=== PATIENT | female | born 1945 | race African-American/Black ===

== ENCOUNTER 2016-12-06 12:41 | Emergency (ER) | payer MEDICARE, BC ==
[~2016-12-06] VITALS: Ht 167.6 cm; Wt 81.2 kg
[~2016-12-06 12:41] MED LIST: ALBUTEROL SULF8.5 GM INH; ATARAX25 MG PO; COSOPT EYE DROP10 ML BOTH EYES; METHIMAZOLE5 MG PO; TESSALON PERLE100 M2 ORAL
[2016-12-06] MEDS ORDERED: AZOPT10 ML OP (13:04)
[2016-12-06] MEDS ORDERED: ALPHAGAN P5 M2 OP (13:04)
[2016-12-06] MEDS ORDERED: LATANOPROST2.5 ML BOTH EYES (13:04)
[2016-12-06 13:18] VITALS: BP 127/84
[2016-12-06] MEDS ORDERED: PROMETHAZINE-P118 M1 PO (13:42)
[2016-12-06] MEDS ORDERED: AZITHROMYCIN250 MG ORAL (13:42)
[2016-12-06 13:49] VITALS: BP 127/84
--- NOTE | 2016-12-07 10:30 | Diagnostic Imaging Report ---
Indication: Dyspnea Comparison: 04/25/12 A single view chest radiograph was obtained. Findings: The heart is borderline enlarged. Lungs are clear. There is a pacemaker on the left. Bones are osteopenic. Impression: No acute disease
--- NOTE | 2016-12-09 13:35 | Emergency Room Report ---
History of Present Illness General Chief Complaint: Upper Respiratory Illness Source: Patient, Medical Record Present Illness HPI Patient present with complaints of cough and congestion reports that she gets this similar problem every year Complains of yellowish sputum Denies any fevers denies any headache Denies any neck pain or photophobia She does have some sore throat with this as well 3/10 worse with swallowing denies any change with ambulation or position Allergies: Coded Allergies: No Known Allergies (Unverified , 04/25/12) Patient History Past Medical History: see triage record Pertinent Family History: none Reviewed Nursing Documentation: PMH: Agreed, PSxH: Agreed Nursing Documentation-PMH Hx Cardiac Problems: Yes - Graves dis,Glaucoma Hx Hypertension: No Hx Pacemaker: Yes - [place] 04/2012 Hx Asthma: No Hx COPD: No Hx Diabetes: No Hx Cancer: No Hx Gastrointestinal Problems: No Hx Dialysis: No Hx Cerebrovascular Accident: No Hx Seizures: No Review of Systems All Other Systems: negative except mentioned in HPI Physical Exam Vital Signs Date Time Temp Pulse Resp B/P Pulse Ox O2 Delivery O2 Flow Rate FiO2 12/06/16 12:57 97.9 62 16 124/82 98 Room Air Sp02 EP Interpretation: reviewed, normal General Appearance: well appearing, no apparent distress Head: normocephalic, atraumatic Eyes: bilateral eye EOMI, bilateral eye PERRL ENT: hearing grossly normal, TMs + canals normal, uvula midline, pharyngeal erythema Neck: full range of motion, supple, no meningismus, no bony tend Respiratory: lungs clear, normal breath sounds, no rhonchi, no respiratory distress, no retraction, no accessory muscle use Cardiovascular #1: normal peripheral pulses, regular rate, rhythm, no edema, no gallop, no JVD, no murmur Gastrointestinal: normal bowel sounds, non tender, soft, no mass, no organomegaly, non-distended, no guarding, no hernia, no pulsatile mass, no rebound Genitourinary: no CVA tenderness Musculoskeletal: normal inspection Neurologic: oriented x3, responsive, regulator pin inserter III-XII nml as tested, motor strength/ tone normal, sensory intact Psychiatric: mood/affect normal Skin: normal color, no rash, warm/dry, palpation normal Lymphatic: normal inspection, no adenopathy Medical Decision Making Diagnostic Impression: Primary Impression: atypical pneumonia ER Course And the patient's symptoms history and presentation x-ray imaging was done appears appropriate patient diagnosed with atypical pneumonia given her symptoms we'll have appropriate coverage and initial conservative outpatient trial Chest X-Ray Diagnostic Results EP Interpretation: Yes Findings: no consolidation, no effusion, no pneumothorax Number of Views: 1 Last Vital Signs Date Time Temp Pulse Resp B/P Pulse Ox O2 Delivery O2 Flow Rate FiO2 12/06/16 13:49 98.1 65 15 127/84 99 Room Air Status: improved Disposition: HOME, SELF-CARE Condition: Improved Scripts Promethazine/Phenyleph/Codeine (Tsgbzmfumhqj-LW-Thwdyzg Syrup) 118 Ml Syrup 118 ML PO QHS for 5 Days, ML Prov: APRIL BORGES D.O. 12/06/16 Azithromycin* (ZITHROMAX*) 250 Mg Tablet 250 MG ORAL DAILY, #6 TAB 0 Refills Take two tablets by mouth today, then take one tablet by mouth daily for four days Prov: APRIL BORGES D.O. 12/06/16 Referrals: CRISTÓBAL MARSH (PCP) Patient Instructions: Cough, Adult, [id number]-kn-[id number] Additional Instructions: Patient is provided with the discharge instructions notified to follow up with primary doctor in the next 2-3 days otherwise return to the er with any worsening symptoms. Please note that this report is being documented using [employer] technology. This can lead to erroneous entry secondary to incorrect interpretation by the dictating instrument. APRIL BORGES D.O. December 09, 2016 13:35
== END 2016-12-06 13:49 | disposition home or self-care (01) ==
LOC: EMR 13:20
DX: J18.9 Pneumonia, unspecified organism (principal); J39.9 Disease of upper respiratory tract, unspecified; R05 Cough; I25.2 Old myocardial infarction; Z95.0 Presence of cardiac pacemaker; E05.00 Thyrotoxicosis with diffuse goiter without thyrotoxic crisis or storm; H40.9 Unspecified glaucoma
CPT/HCPCS: 71010; 99283

== ENCOUNTER 2017-05-29 17:29 | Emergency (ER) | payer MEDICARE, BC ==
[~2017-05-29] VITALS: Ht 167.6 cm; Wt 77.1 kg
[~2017-05-29 17:29] MED LIST changes: +ALPHAGAN P5 M2 OP; +AZITHROMYCIN250 MG ORAL; +AZOPT10 ML OP; +LATANOPROST2.5 ML BOTH EYES; +PROMETHAZINE-P118 M1 PO
--- NOTE | 2017-05-29 17:54 | Emergency Room Report ---
History of Present Illness General Chief Complaint: Pain Source: Patient Present Illness HPI 72 YO Female presents to the ED c/o right sided neck 9/10 in severity pain and posterior shoulder pain described as tight, and muscle soreness. pt. reports some mild relief with OTC topical muscle cream. denies trauma or fall. pt. denies weakness in the affected extremity, she denies any limitation to the range of motion in her right shoulder. Denies midline neck or back pain. Denies numbness tingling or loss of sensation or gross motor movements of the extremities, incontinence of bowel or bladder. Denies CP, Palpitations, LOC, AMS , dizziness, Changes in Vision, Sensation, paresthesias, or a sudden severe headache. Allergies: Coded Allergies: SCALLOPS (Verified Allergy, Unknown, 05/29/17) Patient History Past Medical History: see triage record Past Surgical History: none Pertinent Family History: none Now: No Reviewed Nursing Documentation: PMH: Agreed, PSxH: Agreed Nursing Documentation-PMH Past Medical History: No History, Except For Hx Cardiac Problems: Yes - Graves disease, Glaucoma, thyroidectomy Hx Hypertension: No Hx Pacemaker: Yes - [place] 04/2012 Hx Asthma: No Hx COPD: No Hx Diabetes: No Hx Cancer: No Hx Gastrointestinal Problems: No Hx Dialysis: No History Of Psychiatric Problem: No Hx Neurological Problems: No Hx Cerebrovascular Accident: No Hx Seizures: No Review of Systems All Other Systems: negative except mentioned in HPI Physical Exam Vital Signs Date Time Temp Pulse Resp B/P (MAP) Pulse Ox O2 Delivery O2 Flow Rate FiO2 05/29/17 17:37 97.5 60 16 117/68 100 Room Air Sp02 EP Interpretation: reviewed, normal General Appearance: well appearing, no apparent distress, alert, GCS 15, non- toxic Head: normocephalic, atraumatic Eyes: bilateral eye normal inspection, bilateral eye PERRL ENT: hearing grossly normal, normal voice Neck: full range of motion, no meningismus, no bony tend, supple/symm/no masses Respiratory: chest non-tender, lungs clear, normal breath sounds, speaking full sentences Cardiovascular #1: regular rate, rhythm, normal capillary refill Cardiovascular #2: 2+ radial (R), 2+ radial (L) Gastrointestinal: non tender, soft Musculoskeletal: back normal, gait/station normal, normal range of motion, non- tender Neurologic: normal inspection, alert, oriented x3, responsive, motor strength/ tone normal, sensory intact, normal gait, speech normal, no pronator, other - equal flight hostess strength. Skin: normal color, no rash, warm/dry, well hydrated Lymphatic: no adenopathy Medical Decision Making PA Attestation Dr. Vargas is my supervising Physician whom patient management has been discussed with. Diagnostic Impression: Primary Impression: Cervical strain Qualified Codes: S16.1XXA - Strain of muscle, fascia and tendon at neck level , initial encounter ER Course 72 YO Female presents to the ED c/o right sided neck 9/10 in severity pain and posterior shoulder pain described as tight, and muscle soreness. pt. reports some mild relief with OTC topical muscle cream. denies trauma or fall. pt. denies weakness in the affected extremity, she denies any limitation to the range of motion in her right shoulder. Denies midline neck or back pain. Denies numbness tingling or loss of sensation or gross motor movements of the extremities, incontinence of bowel or bladder. Denies CP, Palpitations, LOC, AMS , dizziness, Changes in Vision, Sensation, paresthesias, or a sudden severe headache. Ddx considered but are not limited to Fracture, dislocation, contusion, CVA, Sprain/Strain/Spasm Vital signs: are WNL, pt. is afebrile H&PE are most consistent with muscle spasm/ cervical strain. pt. is NVI, has FROM without pain in the right shoulder, no evidence of infection or neurological deficit. ORDERS: none required at this time. ED INTERVENTIONS: -Robaxin PO -IBU PO -I do not suspect an emergent condition at this time with pt. current presentation of symptoms and essentially normal PE. -D/w pt. conservative treatment, and to follow up with a primary care provider. pt given a list of primary care clinics for follow up. d/w pt. to return to the ED with worsening or new symptoms. DISCHARGE: At this time pt. is stable for d/c to home. Will provide printed patient care instructions, and any necessary prescriptions. Care plan and follow up instructions have been discussed with the patient prior to discharge. Last Vital Signs Date Time Temp Pulse Resp B/P (MAP) Pulse Ox O2 Delivery O2 Flow Rate FiO2 05/29/17 17:37 97.5 60 16 117/68 100 Room Air Disposition: HOME, SELF-CARE Condition: Stable Scripts Lidocaine (Lidoderm) 1 Each Adh..patch 1 PATCH TOPIC DAILY, #20 PATCH 0 Refills Patch(es) may remain in place for up to 12 hours in any 24-hour period. Prov: Karli Triana 05/29/17 Ibuprofen* (MOTRIN*) 600 Mg Tablet 600 MG ORAL THREE TIMES A DAY, #20 TAB 0 Refills Prov: Karli Triana 05/29/17 Methocarbamol* (ROBAXIN-750*) 750 Mg Tablet 750 MG PO QID for 7 Days, #28 TAB 0 Refills Prov: Karli Triana 05/29/17 Patient Instructions: Cervical Strain and Sprain With Rehab-[facility] Additional Instructions: Take medications as directed. Follow up with a Primary Care Provider in 3-5 days, even if your symptoms have resolved. Return sooner to ED if new symptoms occur, or current symptoms become worse. Do not drink alcohol, drive, or operate heavy machinery while taking Muscle relaxer: Robaxin as this may cause drowsiness. - Please note that this Emergency Department Report was dictated using [employer] technology software, occasionally this can lead to erroneous entry secondary to interpretation by the dictation equipment. Karli Triana May 29, 2017 17:54
[2017-05-29 17:58] VITALS: BP 117/68
[2017-05-29] MEDS: Methocarbamol 500mg tab ORAL ONE (18:03)
[2017-05-29] MEDS ORDERED: IBUPROFEN600 MG ORAL (18:05)
[2017-05-29] MEDS ORDERED: LIDODERM700 M1 TOPIC (18:05)
[2017-05-29] MEDS ORDERED: ROBAXIN-750750 MG PO (18:05)
[2017-05-29 18:25] VITALS: BP 117/68
== END 2017-05-29 18:28 | disposition home or self-care (01) ==
LOC: EMR 18:14
DX: S16.1XXA Strain of muscle, fascia and tendon at neck level, initial encounter (principal); X58.XXXA Exposure to other specified factors, initial encounter; Y92.89 Other specified places as the place of occurrence of the external cause
CPT/HCPCS: 99284

== ENCOUNTER 2018-09-09 17:01 | Inpatient (IN) | payer MEDICARE, BC ==
[~2018-09-09] VITALS: Ht 167.6 cm; Wt 71.2 kg
[~2018-09-09 17:01] MED LIST changes: +IBUPROFEN600 MG ORAL; +LIDODERM700 M1 TOPIC; +ROBAXIN-750750 MG PO
[2018-09-09 18:40] VITALS: BP 132/90
[2018-09-09 20:00] VITALS: BP 130/74
--- NOTE | 2018-09-09 20:40 | NUR ---
Received patient in bed, direct admit from home, patient of Dr. Lee. patient is awake, alert and oriented, ambulatory, she is legally blind, belongings list complete and accounted for. MD notified of admissions, admit orders are entered by Dr. Lee, home medications are reconciled, IV started on right hand 22 art, saline lock. No skin issues, patient is on room air. Call light is within reach, bed is in low position, locked and alarm is on. Will continue to monitor for safety and comfort.
[2018-09-09] MEDS ORDERED: Milk of Magnesia 30ml Ud ORAL PRN (21:30)
[2018-09-09] MEDS ORDERED: Promethazine/Codeine 5ml UD ORAL PRN (21:30)
[2018-09-09 22:13] LABS: BASOPHILS % (AUTO) 0.9 % (0.0-2.0); EOSINOPHILS % (AUTO) 8.4 % (0.0-3.0); HEMATOCRIT 30.7 % (37.0-47.0); HEMOGLOBIN 9.9 G/DL (12.0-16.0); LYMPHOCYTES % (AUTO) 25.3 % (20.0-45.0); MEAN CORPUSCULAR VOLUME 83 FL (80-99); NEUTROPHILS % (AUTO) 58.5 % (45.0-75.0); PLATELET COUNT 229 K/UL (150-450); RED BLOOD COUNT 3.72 M/UL (4.20-5.40); RED CELL DISTRIBUTION WIDTH 15.7 % (11.6-14.8); WHITE BLOOD COUNT 7.5 K/UL (4.8-10.8)
[2018-09-09 22:39] LABS: ALANINE AMINOTRANSFERASE 12 U/L (12-78); ALBUMIN 3.2 G/DL (3.4-5.0); ALBUMIN/GLOBULIN RATIO 0.6 (1.0-2.7); ALKALINE PHOSPHATASE 60 U/L (46-116); ANION GAP 10 mmol/L (5-15); ASPARTATE AMINO TRANSFERASE 15 U/L (15-37); BILIRUBIN,TOTAL 0.4 MG/DL (0.2-1.0); BLOOD UREA NITROGEN 16 mg/dL (7-18); CALCIUM 8.8 MG/DL (8.5-10.1); CARBON DIOXIDE 26 MMOL/L (21-32); CHLORIDE 102 MMOL/L (98-107); CREATININE 1.2 MG/DL (0.55-1.30); POTASSIUM 3.3 MMOL/L (3.5-5.1); SODIUM 138 MMOL/L (136-145)
[2018-09-09] MEDS: Albuterol/Ipratropium 3ml neb HHN SCH (22:40)
[2018-09-09] MEDS ORDERED: Vancomycin 1gm in D5W 275ml IVPB SCH (23:00)
[2018-09-09] MEDS ORDERED: LINZESS145 MCG PO (23:17)
[2018-09-09] MEDS ORDERED: SYNTHROID200 MCG ORAL (23:17)
[2018-09-09] MEDS ORDERED: ALLOPURINOL300 M1 ORAL (23:17)
[2018-09-09] MEDS ORDERED: XARELTO20 MG ORAL (23:17)
[2018-09-09] MEDS ORDERED: LUMIGAN2.5 ML BOTH EYES (23:17)
[2018-09-09] MEDS ORDERED: PROPRANOLOL HCL80 MG ORAL (23:17)
[2018-09-09] MEDS ORDERED: CALCIUM500 M3 PO (23:17)
[2018-09-09] MEDS ORDERED: CALCITRIOL0.25 MCG PO (23:17)
[2018-09-09] MEDS ORDERED: HYDROXYZINE HCL25 M1 PO (23:17)
[2018-09-09] MEDS ORDERED: AUGMENTIN 500-1 EACH ORAL (23:17)
[2018-09-09] MEDS ORDERED: VITAMIN C500 M1 ORAL (23:17)
[2018-09-10] VITALS (7 sets, daily range): BP systolic 105–128; BP diastolic 62–77
[2018-09-10] MEDS: Cefepime HCl 1 GM in D5W 55 ML IVPB SCH ×2 (00:07→09:22)
[2018-09-10] MEDS ORDERED: HydrOXYzine tab 25mg tab ORAL PRN (02:45)
[2018-09-10] MEDS ORDERED: Milk of Magnesia 30ml Ud ORAL PRN (02:45)
[2018-09-10] MEDS: Albuterol/Ipratropium 3ml neb HHN SCH ×6 (03:16→23:16)
--- NOTE | 2018-09-10 04:15 | History and Physical Report ---
DATE OF ADMISSION: 09/09/2018 CARDIOLOGY EVALUATION ADMITTING PHYSICIAN: Jose Raul Lee M.D. REFERRING PHYSICIAN: Garry Rangel M.D. REASON FOR ADMISSION: Elevated natriuretic peptide assay in the setting of cardiomyopathy and permanent pacemaker. HISTORY OF PRESENT ILLNESS: This is a 73-year-old female. She underwent left lumpectomy about a month ago. Following the surgical intervention, she developed cough. She was treated as an outpatient, but failed to improve and worsened over the past week specifically. She has hacking cough and shortness of breath. She was seen in my office and referred for a chest radiograph that was done at [facility] today. The result was notable for a new right lower lobe infiltrate. The patient had an abnormal CT scan just prior to her left lumpectomy. A lung nodule was noted in the right upper lobe. Biopsy was planned, however, at that time, they have noted the nodule had decreased in size, hence no biopsy was performed as it was felt to likely be inflammatory. A repeat CT scan was to be done within 3 months' time. PAST MEDICAL HISTORY: Hypertension, permanent pacemaker, Graves disease, status post thyroidectomy and iodine-131 therapy, exophthalmos, glaucoma with blindness, vitamin D deficiency, chronic constipation, hyperuricemia, paroxysmal atrial fibrillation, breast cancer, status post left lumpectomy. ALLERGIES TO MEDICATIONS: None. FAMILY HISTORY: Noncontributory. SOCIAL HISTORY: Negative for smoking, alcohol, or substance abuse. MEDICATIONS: Reviewed and reconciled. REVIEW OF SYSTEMS: Her outpatient echocardiogram revealed normal ejection fraction and concentric hypertrophy. Her baseline EKG has chronic T-wave inversions in the precordial leads and she is usually atrial-paced. She does have history of diastolic dysfunction, but no recent use of diuretics. She is on anticoagulation for cardioembolic prophylaxis. Her pacemaker was interrogated and functioning well within the last 3 months. She had a pacemaker generator change less than a year ago. PHYSICAL EXAMINATION: VITAL SIGNS: Oxygen saturation 99% on room air, temperature 99, blood pressure 132/90, heart rate 61, respiratory rate 18. HEENT: Exophthalmos. Blindness. Oropharynx clear. NECK: Supple. No adenopathy. CHEST: Left lumpectomy scar is healed. LUNGS: With rhonchi at the right base. CARDIAC: Regular rhythm and rate. Normal S1, S2. A 1/6 systolic apical murmur. ABDOMEN: Soft. EXTREMITIES: No edema. NEUROLOGIC: Nonfocal. LABORATORY DATA: Pro-natriuretic peptide 211. Albumin 3.2. TSH 1.1. Lactic acid 1.4. Potassium 3.3, BUN 16, creatinine 1.2. Magnesium 1.7. White count 7.5, hemoglobin 9.9. IMPRESSION: 1. Community-acquired pneumonia. 2. Recent lumpectomy for left breast cancer. 3. Lung nodule, recently noted to be decreasing in size, but pending further followup. 4. Graves disease with exophthalmos and prior thyroidectomy, on replacement therapy. 5. Hypertensive heart disease. 6. Permanent pacemaker. 7. Chronic diastolic congestive heart failure. 8. Mild protein-calorie malnutrition. 9. Paroxysmal atrial fibrillation, on cardioembolic prophylaxis. PLAN: 1. Empiric antibiotics. 2. Respiratory hygiene. 3. No diuretic therapy at present. 4. Continue cardioembolic prophylaxis with rivaroxaban. 5. Sputum cultures. 6. Repeat CT of the chest to evaluate status of lung nodule. Jose Raul Lee M.D. DR: Debra JOB#: [id number] CC: CRISTINA
--- NOTE | 2018-09-10 07:02 | NUR ---
HAND-OFF: Report given to Dami DIAZ.
--- NOTE | 2018-09-10 07:05 | NUR ---
NURSE NOTES: Patient lying in bed awake. No complain of pain or distress at this time. Skin intact and dry. IV dressing intact and dry. No bleeding or swelling on IV site. Bed lowest position. Call light within reach. Will continue to monitor.
[2018-09-10] MEDS: Calcium Carbonate 500mg w/Vit D 200iu tab ORAL SCH ×3 (09:00→17:11)
[2018-09-10] MEDS ORDERED: Dorzolamide 2% 10ml Btl BOTH EYES SCH (09:00)
[2018-09-10] MEDS: Brimonidine 0.2% Opth Sol BOTH EYES SCH ×3 (09:22→23:35)
[2018-09-10] MEDS: Cosopt Opth Soln 10 mL Btl BOTH EYES SCH ×2 (10:40→17:12)
--- NOTE | 2018-09-10 15:05 | NUR ---
NURSE NOTES: Collect sputum specimen and sent to Lab.
--- NOTE | 2018-09-10 16:22 | NUR ---
CASE MANAGEMENT:REVIEW 73YR OLD FEMALE FROM HOME CC; FAILED OUTPATIENT TREATMENT SI: PNA. LUNG NODULE 99.0 61 18 132/90 99% ON RA H/H-9.9/30.7 K-3.3 MAG-1.7 IS: IV CEFEPIME QD IV VANCOMYCIN Q24 XARELTO PO QPM SYNTHROID PO QD DUONEB HHN Q4RTC : MED/SURG UNIT 3 [facility] INTERQUAL CRITERIA MET
[2018-09-10] MEDS: Xarelto 10mg tab ORAL SCH (16:30)
[2018-09-10] MEDS ORDERED: Xarelto 15mg tab ORAL SCH (16:30)
--- NOTE | 2018-09-10 16:52 | NUR ---
RESPIRATORY NOTE: unable to give treatment at 1500 due to emergency room and no other rts available
--- NOTE | 2018-09-10 19:30 | NUR ---
HAND-OFF: Report given to Little DIAZ. Patient in stable condition.
--- NOTE | 2018-09-10 19:50 | NUR ---
NURSE NOTES: Patient in bed asleep, easily arousable to name, no s/s distress noted. Denies any pain or discomfort at this time. Safety precaution maintained. Instructed to use call light for assistance. Call light within reach.
[2018-09-10] MEDS: Latanoprost 0.005% Opth 2.5ml Soln BOTH EYES SCH ×2 (21:00→21:03)
[2018-09-11] VITALS: BP 105/57
[2018-09-11] MEDS: Vancomycin 1gm in D5W 275ml IVPB SCH (01:33)
[2018-09-11] MEDS: Albuterol/Ipratropium 3ml neb HHN SCH ×6 (02:43→23:42)
[2018-09-11 04:00] VITALS: BP 126/72
--- NOTE | 2018-09-11 04:30 | Progress Note ---
DATE: 09/10/2018 CARDIOLOGY INTERNAL MEDICINE PROGRESS NOTE SUBJECTIVE: The patient has slightly less cough and congestion. Still feels short of breath with activity. OBJECTIVE: VITAL SIGNS: Blood pressure 105/63, pulse 60, respiratory rate 20, afebrile, and room air oxygen saturation 98%. CHEST: Rhonchi on the right. HEART: Regular rhythm and rate. Normal S1, S2. ABDOMEN: Soft. EXTREMITIES: No edema. IMPRESSION: 1. Right lower lobe pneumonia. 2. Breast cancer with recent left lumpectomy. 3. History of lung nodule that decreased in size. 4. Graves disease. 5. Permanent pacemaker. 6. Hypertensive heart disease. PLAN: 1. Respiratory therapy. 2. Bronchodilators. 3. Antimicrobials. 4. Await culture results. 5. Recheck laboratory studies. 6. Nasal oxygen. 7. CAT scan of the chest. Jose Raul Lee M.D. DR: FATUMA JOB#: [id number] CC:
--- NOTE | 2018-09-11 07:25 | NUR ---
HAND-OFF: Report given to Leona DIAZ.
--- NOTE | 2018-09-11 07:30 | NUR ---
NURSE NOTES: Report received from outgoing RN, rounds made. Patient sleeping in semi-fowlers position in bed. No distress noted, on RA. Right hand heplock intact. Call light in reach, bed in lowest position, will continue to monitor.
[2018-09-11 08:00] VITALS: BP 111/63
[2018-09-11] MEDS: Calcium Carbonate 500mg w/Vit D 200iu tab ORAL SCH ×4 (09:00→18:19)
[2018-09-11] MEDS: Cefepime HCl 1 GM in D5W 55 ML IVPB SCH (09:12)
[2018-09-11] MEDS: Brimonidine 0.2% Opth Sol BOTH EYES SCH ×2 (09:13→16:41)
[2018-09-11] MEDS: Cosopt Opth Soln 10 mL Btl BOTH EYES SCH ×2 (09:14→18:19)
[2018-09-11 12:00] VITALS: BP 119/63
--- NOTE | 2018-09-11 12:23 | General Progress Note ---
Assessment/Plan Problem List: (1) Constipation ICD Codes: K59.00 - Constipation, unspecified SNOMED: 96122330 (2) Bronchitis ICD Codes: J40 - Bronchitis, not specified as acute or chronic SNOMED: 70202587 (3) Pneumonia ICD Codes: J18.9 - Pneumonia, unspecified organism SNOMED: 868816836 Status: stable, progressing Assessment/Plan cont current rx abx bowel regime monitor cxr resp care cough rx Subjective ROS Limited/Unobtainable: No Constitutional: Reports: malaise, weakness HEENT: Reports: no symptoms Cardiovascular: Reports: no symptoms Respiratory: Reports: no symptoms Gastrointestinal/Abdominal: Reports: constipated Genitourinary: Reports: no symptoms Neurologic/Psychiatric: Reports: no symptoms Endocrine: Reports: no symptoms Hematologic/Lymphatic: Reports: no symptoms Allergies: Coded Allergies: SCALLOPS (Verified Allergy, Unknown, 05/29/17) All Systems: reviewed and negative except above Subjective resting. no cough and congestion. c/o constipation. Objective Last 24 Hour Vital Signs Date Time Temp Pulse Resp B/P (MAP) Pulse Ox O2 Delivery O2 Flow Rate FiO2 09/11/18 11:38 74 14 100 Room Air 09/11/18 11:29 21 09/11/18 11:29 71 14 98 Room Air 09/11/18 07:50 Room Air 09/11/18 07:50 Room Air 09/11/18 04:00 98.1 60 18 126/72 (90) 100 09/11/18 02:53 60 16 100 Room Air 09/11/18 02:43 61 18 97 Room Air 09/11/18 00:00 97.8 61 20 105/57 (73) 98 09/10/18 23:24 60 16 99 Room Air 21 09/10/18 23:17 60 18 98 Room Air 21 09/10/18 21:00 Room Air 09/10/18 20:00 98.3 60 20 105/62 (76) 96 09/10/18 19:59 62 16 100 Room Air 21 09/10/18 19:49 61 18 97 Room Air 21 09/10/18 16:00 98.7 58 18 113/75 (88) 96 09/10/18 15:00 Room Air 21 09/10/18 15:00 Room Air 21.0 Intake and Output 09/10/18 09/11/18 19:00 07:00 Intake Total 240 ml 120 ml Balance 240 ml 120 ml Intake Oral 240 ml 120 ml # Voids 1 3 Height (Feet): 5 Height (Inches): 6.00 Weight (Pounds): 157 General Appearance: WD/WN, alert Cardiovascular: regular rhythm Respiratory/Chest: normal breath sounds Abdomen: normal bowel sounds, non tender, no organomegaly Edema: no edema noted Arm (L), no edema noted Arm (R), no edema noted Leg (L), no edema noted Leg (R), no edema noted Pedal (L), no edema noted Pedal (R), no edema noted Generalized Garry Rangel MD Sep 11, 2018 12:23
[2018-09-11] MEDS ORDERED: Lactulose 20gm/30ml UDC ORAL SCH (13:00)
[2018-09-11 15:24] LABS: BASOPHILS % (AUTO) 1.3 % (0.0-2.0); EOSINOPHILS % (AUTO) 6.8 % (0.0-3.0); HEMATOCRIT 28.8 % (37.0-47.0); HEMOGLOBIN 9.4 G/DL (12.0-16.0); LYMPHOCYTES % (AUTO) 31.6 % (20.0-45.0); MEAN CORPUSCULAR VOLUME 81 FL (80-99); MONOCYTES % (AUTO) 10.1 % (1.0-10.0); NEUTROPHILS % (AUTO) 50.1 % (45.0-75.0); PLATELET COUNT 242 K/UL (150-450); RED BLOOD COUNT 3.53 M/UL (4.20-5.40); RED CELL DISTRIBUTION WIDTH 15.7 % (11.6-14.8); WHITE BLOOD COUNT 6.3 K/UL (4.8-10.8)
[2018-09-11 15:51] LABS: ALANINE AMINOTRANSFERASE 10 U/L (12-78); ALBUMIN 2.9 G/DL (3.4-5.0); ALBUMIN/GLOBULIN RATIO 0.7 (1.0-2.7); ALKALINE PHOSPHATASE 58 U/L (46-116); ANION GAP 9 mmol/L (5-15); ASPARTATE AMINO TRANSFERASE 16 U/L (15-37); BILIRUBIN,TOTAL 0.2 MG/DL (0.2-1.0); BLOOD UREA NITROGEN 12 mg/dL (7-18); CALCIUM 8.1 MG/DL (8.5-10.1); CARBON DIOXIDE 28 MMOL/L (21-32); CHLORIDE 104 MMOL/L (98-107); POTASSIUM 4.7 MMOL/L (3.5-5.1); SODIUM 141 MMOL/L (136-145)
[2018-09-11 16:00] VITALS: BP 124/72
[2018-09-11] MEDS: Xarelto 10mg tab ORAL SCH (16:41)
[2018-09-11] MEDS ORDERED: Milk of Magnesia 30ml Ud ORAL PRN (16:45)
--- NOTE | 2018-09-11 19:30 | NUR ---
HAND-OFF: Report given to Blanca DIAZ.
--- NOTE | 2018-09-11 19:30 | NUR ---
NURSE NOTES: Received report & pt from JOE Delgadillo. Pt lying in bed, a&ox4, in room air. No s/s of acute distress & c/o 3/10 pain (headache). Will give Tylenol PRN for headache. Skin intact. IV site intact & S/L'd. Bed in lowest position, call light within reach. Will continue to monitor.
[2018-09-11 20:00] VITALS: BP 127/79
[2018-09-11] MEDS: Latanoprost 0.005% Opth 2.5ml Soln BOTH EYES SCH (21:14)
[2018-09-12] VITALS: BP 131/68
[2018-09-12] MEDS: Brimonidine 0.2% Opth Sol BOTH EYES SCH ×4 (00:04→23:51)
[2018-09-12] MEDS: Vancomycin 1gm in D5W 275ml IVPB SCH (02:12)
[2018-09-12] MEDS: Albuterol/Ipratropium 3ml neb HHN SCH ×6 (03:00→23:11)
[2018-09-12 04:00] VITALS: BP 133/78
--- NOTE | 2018-09-12 05:45 | Progress Note ---
DATE: 09/11/2018 CARDIOLOGY PROGRESS NOTE SUBJECTIVE: The patient has several complaints although she notes less cough. She is constipated. She has pain from her IV access site and she is distressed with poor venous access for her blood draws. OBJECTIVE: VITAL SIGNS: Blood pressure 131/68, pulse 61, respiratory rate 18, and afebrile. LUNGS: Few rhonchi at the right. HEART: Regular rhythm and rate. Normal S1, paradoxically split S2. ABDOMEN: Soft. EXTREMITIES: No edema. IV sites are clean. IMPRESSION: 1. Community-acquired pneumonia. 2. Left breast cancer, status post lumpectomy. 3. Paroxysmal atrial fibrillation. 4. Permanent pacemaker. 5. Constipation. 6. Poor peripheral access. 7. History of right upper lobe nodule, most recently decreasing in size. PLAN: 1. Respiratory hygiene. 2. Antimicrobials. 3. Nasal oxygen. 4. Bronchodilators. 5. Resuming anticoagulation for cardioembolic prophylaxis. 6. following lumpectomy to be scheduled once pneumonia clears. Check CT scan of the chest. Jose Raul Lee M.D. DR: TEN JOB#: [id number] CC:
--- NOTE | 2018-09-12 07:19 | NUR ---
HAND-OFF: Report given to JOE Delgadillo.
--- NOTE | 2018-09-12 07:35 | NUR ---
NURSE NOTES: Report received from outgoing RN, rounds made. Patient resting in bed in semi-fowlers position. No complains of pain, SOB on RA or NV. Right hand heplock intact, site asymptomatic. Encouraged CDB exercises. Patient has a productive cough, able to expectorate sputum, noted thin, white sputum. No wheeze noted. Call light in reach, bed in lowest position, will continue to monitor.
[2018-09-12 08:00] VITALS: BP 138/79
[2018-09-12] MEDS: Cosopt Opth Soln 10 mL Btl BOTH EYES SCH ×2 (08:57→18:00)
[2018-09-12] MEDS: Calcium Carbonate 500mg w/Vit D 200iu tab ORAL SCH ×3 (08:57→18:02)
[2018-09-12] MEDS: Cefepime HCl 1 GM in D5W 55 ML IVPB SCH (08:57)
--- NOTE | 2018-09-12 11:00 | NUR ---
NURSE NOTES: Patient sent down for chest CT via bed at 1050 and returned to room via bed at 1100. Patient remains safe and stable.
--- NOTE | 2018-09-12 11:28 | Diagnostic Imaging Report ---
EXAM: CT Chest Without Intravenous Contrast CLINICAL HISTORY: MASS TECHNIQUE: Axial computed tomography images of the chest without intravenous contrast. CTDI is 16.80 mGy and DLP is 529 mGy-cm. One or more of the following dose reduction techniques were used: automated exposure control, adjustment of the mA and/or kV according to patient size, use of iterative reconstruction technique. COMPARISON: Chest x-ray dated 12/06/16 FINDINGS: Lungs: 3.0 x 1.8 cm region of consolidation in the dependent right lower lobe with possible cavitation. Pleural space: Small right pleural effusion. No pneumothorax. Heart: Trace pericardial fluid. Bones/joints: Unremarkable. No acute fracture. No dislocation. Soft tissues: 3.0 x 2.9 x 2.5 cm subcutaneous, fluid collection versus cystic mass in the left anterior breast. Overlying skin thickening. Adjacent subcutaneous soft tissue stranding. Surgical clips in the left axilla. Vasculature: Unremarkable. No thoracic aortic aneurysm. Lymph nodes: Prominent enlarged pretracheal, and precarinal lymph nodes, largest measuring 1.3 x 1.2 cm (series 3 image 13). Tubes, lines and devices: Cardiac pacer in the left chest wall with the lead tips in the right atrium and right ventricle. IMPRESSION: 1. 3.0 x 2.9 x 2.5 cm subcutaneous fluid collection versus cystic mass in the left anterior breast. Overlying skin thickening. Adjacent subcutaneous soft tissue stranding. 2. 3.0 x 1.8 cm region of consolidation in the dependent right lower lobe with possible cavitation. Differential diagnosis includes atelectasis, pneumonia, or mass. Recommend follow-up imaging to confirm resolution and exclude an underlying mass. 3. Small right pleural effusion. 4. Trace pericardial fluid. 5. Prominent enlarged pretracheal, and precarinal lymph nodes, largest measuring 1.3 x 1.2 cm (series 3 image 13).
[2018-09-12 12:00] VITALS: BP 104/64
--- NOTE | 2018-09-12 13:33 | NUR ---
CASE MANAGEMENT: REVIEW 09/12/2018 SI: PNA. LUNG NODULE T 98.1 HR 60 RR 17 B/P 104/64 SATS 100% ON RA NO LABS TODAY IS: IV CEFEPIME QD IV VANCOMYCIN Q24 XARELTO PO QPM SYNTHROID PO QD DUONEB HHN Q4RTC : MED/SURG UNIT [facility]
--- NOTE | 2018-09-12 14:02 | General Progress Note ---
Assessment/Plan Problem List: (1) Constipation ICD Codes: K59.00 - Constipation, unspecified SNOMED: 46182798 (2) Bronchitis ICD Codes: J40 - Bronchitis, not specified as acute or chronic SNOMED: 10677933 (3) Pneumonia ICD Codes: J18.9 - Pneumonia, unspecified organism SNOMED: 103947450 Status: stable, progressing Assessment/Plan cont current rx abx bowel regime monitor cxr resp care cough rx ?pulm eval Subjective ROS Limited/Unobtainable: No Constitutional: Reports: no symptoms HEENT: Reports: no symptoms Cardiovascular: Reports: no symptoms Respiratory: Reports: cough Gastrointestinal/Abdominal: Reports: no symptoms Genitourinary: Reports: no symptoms Neurologic/Psychiatric: Reports: no symptoms Endocrine: Reports: no symptoms Hematologic/Lymphatic: Reports: no symptoms Allergies: Coded Allergies: SCALLOPS (Verified Allergy, Unknown, 05/29/17) All Systems: reviewed and negative except above Subjective resting. no cough and congestion. c/o constipation. ct noted. + mediastinal LN +cavitary lung mass Objective Last 24 Hour Vital Signs Date Time Temp Pulse Resp B/P (MAP) Pulse Ox O2 Delivery O2 Flow Rate FiO2 09/12/18 12:00 98.1 60 17 104/64 (77) 100 09/12/18 11:59 60 19 99 Room Air 21 09/12/18 11:48 62 20 97 Room Air 21 09/12/18 09:00 Room Air 09/12/18 08:00 98.3 60 18 138/79 (98) 98 09/12/18 07:45 62 16 99 Room Air 21 09/12/18 07:35 60 15 96 Room Air 21 09/12/18 04:00 98.1 76 19 133/78 (96) 99 09/12/18 03:49 Room Air 09/12/18 03:49 Room Air 21.0 09/12/18 00:00 98.2 61 18 131/68 (89) 100 09/11/18 23:56 67 14 100 Room Air 21 09/11/18 23:46 21 09/11/18 23:46 63 14 96 Room Air 21 09/11/18 21:00 Room Air 09/11/18 20:54 60 14 100 Room Air 21 09/11/18 20:54 21 09/11/18 20:53 62 14 96 Room Air 21 09/11/18 20:35 61 16 96 Room Air 21 09/11/18 20:00 99.9 60 17 127/79 (95) 97 09/11/18 16:20 Room Air 09/11/18 16:00 98.5 61 18 124/72 (89) 99 09/11/18 15:31 71 14 100 Room Air 21 09/11/18 15:20 21 09/11/18 15:20 68 14 96 Room Air 21 Intake and Output 09/11/18 09/12/18 19:00 07:00 Intake Total 600 ml 300 ml Balance 600 ml 300 ml Intake Oral 600 ml 300 ml # Voids 3 3 # Bowel Movements 1 Laboratory Tests 09/11/18 14:55: White Blood Count 6.3, Red Blood Count 3.53L, Hemoglobin 9.4L, Hematocrit 28.8L , Mean Corpuscular Volume 81, Mean Corpuscular Hemoglobin 26.6L, Mean Corpuscular Hemoglobin Concent 32.7, Red Cell Distribution Width 15.7H, Platelet Count 242, Mean Platelet Volume 5.9L, Neutrophils (%) (Auto) 50.1, Lymphocytes (%) (Auto) 31.6, Monocytes (%) (Auto) 10.1H, Eosinophils (%) (Auto) 6.8H, Basophils (%) (Auto) 1.3, Sodium Level 141, Potassium Level 4.7, Chloride Level 104, Carbon Dioxide Level 28, Anion Gap 9, Blood Urea Nitrogen 12, Creatinine 1.0, Estimat Glomerular Filtration Rate , Glucose Level 94, Calcium Level 8.1L, Magnesium Level 2.1, Total Bilirubin 0.2, Aspartate Amino Transf ( AST/SGOT) 16, Alanine Aminotransferase (ALT/SGPT) 10L, Alkaline Phosphatase 58, Total Protein 7.0, Albumin 2.9L, Globulin 4.1, Albumin/Globulin Ratio 0.7L 09/12/18 01:07: Vancomycin Level Trough 8.1 Height (Feet): 5 Height (Inches): 6.00 Weight (Pounds): 157 General Appearance: WD/WN, alert Neck: supple Cardiovascular: normal rate Respiratory/Chest: chest wall non-tender, lungs clear, normal breath sounds Abdomen: normal bowel sounds, non tender, soft, no organomegaly Edema: no edema noted Arm (L), no edema noted Arm (R), no edema noted Leg (L), no edema noted Leg (R), no edema noted Pedal (L), no edema noted Pedal (R), no edema noted Generalized Neurologic: no motor/sensory deficits Garry Rangel MD Sep 12, 2018 14:02
[2018-09-12] MEDS ORDERED: PPD Tuberculin Skin Test 5TU IDERMAL ONE (15:30)
[2018-09-12 16:00] VITALS: BP 127/67
[2018-09-12] MEDS ORDERED: Xarelto 15mg tab ORAL SCH (16:30)
--- NOTE | 2018-09-12 18:00 | NUR ---
NURSE NOTES: PPD vaccine administered by charge nurse, Jay Jay DIAZ at 1756 to right forearm (due to history of left lumpectomy). Pre-vaccine temperature 99.2. RFA site, raised, without redness or swelling. Will continue to monitor.
--- NOTE | 2018-09-12 19:30 | NUR ---
HAND-OFF: Report given to Blanca DIAZ. Endorsed that patient will be moved from 308-2 to 317-2 due to initiating airborne precautions.
--- NOTE | 2018-09-12 19:31 | NUR ---
NURSE NOTES: Received report & pt from JOE Delgadillo. Pt lying in bed, a&ox4, in room air. No s/s of acute distress & no c/o pain. Skin intact. IV site intact & S/L'd. Informed pt that we will transfer her to [facility] for airborne precautions & pt verbalized understanding. Bed in lowest position, call light within reach. Will continue to monitor.
[2018-09-12 20:00] VITALS: BP 124/67
[2018-09-12] MEDS: Latanoprost 0.005% Opth 2.5ml Soln BOTH EYES SCH (21:05)
[2018-09-13] VITALS: BP 117/58
[2018-09-13] MEDS: Albuterol/Ipratropium 3ml neb HHN SCH ×6 (03:00→23:22)
--- NOTE | 2018-09-13 03:30 | Progress Note ---
DATE: 09/12/2018 CARDIOLOGY PROGRESS NOTE SUBJECTIVE: The patient distressed, worried about CT scan findings. CT scan reveals mediastinal lymph nodes and cavitary consolidation and possible lung mass in the right lower lobe; however, CT scan done at [facility] two months ago did not have these findings although there were some lymph nodes. There was no lung mass. OBJECTIVE: VITAL SIGNS: Blood pressure 104/64, pulse 60, and respiratory rate 17. LUNGS: Coarse breath sounds. Scattered rhonchi. HEART: Regular rhythm and rate. Normal S1, S2. ABDOMEN: Soft. EXTREMITIES: No edema. IMPRESSION: 1. Breast cancer with recent left lumpectomy, pending radiation therapy. 2. History of right upper lobe lung nodule, now resolved. 3. Mediastinal lymph nodes and right lower lobe consolidation versus mass. 4. Permanent pacemaker. 5. Hypertensive heart disease. 6. Graves' disease, status post thyroidectomy. PLAN: 1. Hold anticoagulation. 2. Continue antimicrobials. 3. Pulmonary consult. Reevaluation by , may need bronchoscopy versus continue treatment and follow up imaging. Jose Raul Lee M.D. DR: CHELSEA JOB#: [id number] CC:
[2018-09-13 04:00] VITALS: BP 136/7
[2018-09-13] MEDS: Vancomycin 1.5gm/D5W 275ml IVPB SCH ×2 (04:30)
--- NOTE | 2018-09-13 06:30 | NUR ---
NURSE NOTES: Pt refused scheduled Synthroid 100mcg med. Per pt, she only takes 100mcg on Sundays & 88mcg for Thursday to Thursday. Informed Dr. Lee & waiting for reply.
--- NOTE | 2018-09-13 07:45 | NUR ---
HAND-OFF: Report given to JOE Marquis. Endorsed to AM shift to f/u with Dr. Lee for Synthroid dosage
[2018-09-13 08:00] VITALS: BP 147/89
--- NOTE | 2018-09-13 08:00 | NUR ---
NURSE NOTES: Patient is in bed awake and able to verbalize needs. Patient denies pain or SOB. Patient has nonproductive cough. Stable with no s/s acute distress. Discussed plan of care with patient, verbalized understanding. Patient in bed with call light within reach. All safety measures provided. WIll continue to monitor.
--- NOTE | 2018-09-13 08:12 | General Progress Note ---
Assessment/Plan Problem List: (1) Constipation ICD Codes: K59.00 - Constipation, unspecified SNOMED: 05773092 (2) Bronchitis ICD Codes: J40 - Bronchitis, not specified as acute or chronic SNOMED: 56129719 (3) Pneumonia ICD Codes: J18.9 - Pneumonia, unspecified organism SNOMED: 131239249 Status: stable, progressing Assessment/Plan cont current rx abx bowel regime monitor cxr resp care cough rx pulm eval ppd Subjective ROS Limited/Unobtainable: No Constitutional: Reports: malaise, weakness HEENT: Reports: no symptoms Cardiovascular: Reports: no symptoms Respiratory: Reports: cough Gastrointestinal/Abdominal: Reports: no symptoms Genitourinary: Reports: no symptoms Neurologic/Psychiatric: Reports: no symptoms Endocrine: Reports: no symptoms Hematologic/Lymphatic: Reports: no symptoms Allergies: Coded Allergies: SCALLOPS (Verified Allergy, Unknown, 05/29/17) All Systems: reviewed and negative except above Subjective no events. in resp isolation. cough increased today. no hemoptysis or night sweats. no cp Objective Last 24 Hour Vital Signs Date Time Temp Pulse Resp B/P (MAP) Pulse Ox O2 Delivery O2 Flow Rate FiO2 09/13/18 07:00 Room Air 21 09/13/18 07:00 Room Air 09/13/18 04:00 97.3 61 18 136/7 (50) 98 09/13/18 03:07 Room Air 09/13/18 03:07 Room Air 21 09/13/18 00:00 97.4 70 18 117/58 (77) 95 09/12/18 23:20 61 20 100 Room Air 09/12/18 23:10 61 20 100 Room Air 21 09/12/18 21:00 Room Air 09/12/18 20:18 60 20 100 Room Air 21 09/12/18 20:09 60 20 100 Room Air 21 09/12/18 20:00 99.0 61 18 124/67 (86) 100 09/12/18 16:00 98.1 60 18 127/67 (87) 99 09/12/18 15:38 63 18 98 Room Air 21 09/12/18 15:27 61 19 99 Room Air 21 09/12/18 12:00 98.1 60 17 104/64 (77) 100 09/12/18 11:59 60 19 99 Room Air 21 09/12/18 11:48 62 20 97 Room Air 21 09/12/18 09:00 Room Air Intake and Output 09/12/18 09/13/18 19:00 07:00 Intake Total 400 ml Balance 400 ml Intake Oral 400 ml # Voids 1 2 Laboratory Tests 09/13/18 01:30: Vancomycin Level Trough 11.0 Height (Feet): 5 Height (Inches): 6.00 Weight (Pounds): 157 Objective General Appearance: WD/WN, alert Neck: supple Cardiovascular: normal rate Respiratory/Chest: chest wall non-tender, lungs clear, normal breath sounds Abdomen: normal bowel sounds, non tender, soft, no organomegaly Edema: no edema noted Arm (L), no edema noted Arm (R), no edema noted Leg (L), no edema noted Leg (R), no edema noted Pedal (L), no edema noted Pedal (R), no edema noted Generalized Neurologic: no motor/sensory deficits Garry Rangel MD Sep 13, 2018 08:12
[2018-09-13] MEDS: Cosopt Opth Soln 10 mL Btl BOTH EYES SCH (08:30)
[2018-09-13] MEDS: Brimonidine 0.2% Opth Sol BOTH EYES SCH (08:30)
[2018-09-13] MEDS: Calcium Carbonate 500mg w/Vit D 200iu tab ORAL SCH ×3 (08:32→17:13)
[2018-09-13] MEDS: Cefepime HCl 1 GM in D5W 55 ML IVPB SCH (08:32)
--- NOTE | 2018-09-13 10:00 | NUR ---
NURSE NOTES: Patient is upset because the doctor did not continue same dosing for Synthroid that she claimed to have taken "for years". Patient requested nurse to page Dr. martinez to change dosing back to her usual home dose. Paged Dr. martinez regarding patient's synthroid dosage. Awaiting response.
--- NOTE | 2018-09-13 11:25 | NUR ---
NURSE NOTES: Dr Lee said he will not change dosing of synthroid and instructed RN to give the morning dose. Patient made aware. Will administer synthroid as ordered.
[2018-09-13 12:00] VITALS: BP 129/75
--- NOTE | 2018-09-13 13:06 | Consultation ---
History of Present Illness Present Illness Allergies: Coded Allergies: SCALLOPS (Verified Allergy, Unknown, 05/29/17) Medication History Scheduled Allopurinol* (Allopurinol*), 300 MG ORAL DAILY, (Reported) Amoxicillin/Potassium Clav 500-125 Tablet* (Augmentin 500-125 Tablet*), 1 TAB ORAL THREE TIMES A DAY, (Reported) Ascorbic Acid* (Vitamin C*), 500 MG ORAL DAILY, (Reported) Azithromycin* (Zithromax*), 250 MG ORAL DAILY Benzonatate (Tessalon Perle), 100 MG ORAL THREE TIMES A DAY Bimatoprost (Lumigan), 1 DROP BOTH EYES DAILY, (Reported) Dorzolamide Hcl/Timolol Maleat (Cosopt Eye Drops), 10 ML BOTH EYES DAILY, ( Reported) Ibuprofen* (Motrin*), 600 MG ORAL THREE TIMES A DAY Levothyroxine Sodium (Synthroid), 200 MCG ORAL DAILY, (Reported) Lidocaine (Lidoderm), 1 PATCH TOPIC DAILY Methimazole (Methimazole), 5 MG PO DAILY, (Reported) Methocarbamol* (Robaxin-750*), 750 MG PO QID Promethazine/Phenyleph/Codeine (Khopiwvgjxjl-CM-Mbvcbpm Syrup), 118 ML PO QHS Propranolol Hcl (Propranolol Hcl), 80 MG ORAL DAILY, (Reported) Scheduled PRN Albuterol Sulfate* (Albuterol Sulfate Mdi*), 2 PUFF INH Q4H PRN for Shortness of Breath Hydroxyzine HCl (Hydroxyzine HCl), 25 MG PO BID PRN, (Reported) Miscellaneous Medications Brimonidine Tartrate (Alphagan P), 5 ML OP, (Reported) Brinzolamide (Azopt), 10 ML OP, (Reported) Calcitriol (Calcitriol), 0.25 MCG PO, (Reported) Calcium Carbonate (Calcium), 500 MG PO, (Reported) Hydroxyzine Hcl (Hydroxyzine Hcl), 25 MG PO, (Reported) Latanoprost* (Xalatan*), 1 DROP BOTH EYES, (Reported) Linaclotide (Linzess), 145 MCG PO, (Reported) Rivaroxaban (Xarelto), 20 MG ORAL, (Reported) Patient History Healthcare decision maker N Resuscitation status Full Code Advanced Directive on File No Physical Exam Last 24 Hour Vital Signs Date Time Temp Pulse Resp B/P (MAP) Pulse Ox O2 Delivery O2 Flow Rate FiO2 09/13/18 12:00 98.3 61 18 129/75 (93) 97 09/13/18 11:30 64 16 100 Room Air 21 09/13/18 11:20 62 16 97 Room Air 21 09/13/18 09:00 Room Air 09/13/18 08:00 98.9 81 18 147/89 (108) 97 09/13/18 07:00 Room Air 09/13/18 07:00 Room Air 09/13/18 04:00 97.3 61 18 136/7 (50) 98 09/13/18 03:07 Room Air 09/13/18 03:07 Room Air 09/13/18 00:00 97.4 70 18 117/58 (77) 95 09/12/18 23:20 61 20 100 Room Air 21 09/12/18 23:10 61 20 100 Room Air 09/12/18 21:00 Room Air 09/12/18 20:18 60 20 100 Room Air 21 09/12/18 20:09 60 20 100 Room Air 21 09/12/18 20:00 99.0 61 18 124/67 (86) 100 09/12/18 16:00 98.1 60 18 127/67 (87) 99 09/12/18 15:38 63 18 98 Room Air 21 09/12/18 15:27 61 19 99 Room Air 21 Intake and Output 09/12/18 09/13/18 18:59 06:59 Intake Total 400 ml Balance 400 ml Intake Oral 400 ml # Voids 1 2 Laboratory Tests Test 09/13/18 01:30 Vancomycin Level Trough 11.0 ug/mL (5.0-12.0) Height (Feet): 5 Height (Inches): 6.00 Weight (Pounds): 157 Medications Current Medications Medications (Trade) Dose Ordered Sig/Dafne Route PRN Reason Start Time Stop Time Status Last Admin Dose Admin Acetaminophen (Tylenol) 650 mg Q4H PRN ORAL Mild Pain/Temp > 100.5 09/09/18 21:30 10/09/18 21:29 09/12/18 08:16 Al Hydroxide/Mg Hydroxide (Mylanta) 30 ml Q6H PRN ORAL dyspepsia 09/09/18 21:30 10/09/18 21:29 Albuterol/ Ipratropium (Albuterol/ Ipratropium) 3 ml Q4HRT HHN 09/09/18 23:00 09/14/18 22:59 09/13/18 11:55 Allopurinol (Allopurinol) 150 mg DAILY ORAL 09/10/18 09:00 10/10/18 08:59 09/13/18 08:32 Brimonidine Tartrate (Alphagan) 1 drop 0000,0800,1600 BOTH EYES 09/10/18 08:00 10/10/18 07:59 09/13/18 08:30 Calcium Carbonate (OsCal D) 1 tab THREE TIMES A DAY ORAL 09/10/18 09:00 10/10/18 08:59 09/13/18 08:32 Cefepime HCl 1 gm/ Dextrose 55 ml @ 110 mls/hr DAILY IVPB 09/11/18 09:00 09/18/18 08:59 09/13/18 08:32 Dorzolamide/ Timolol (Cosopt) 1 drop TWICE A DAY BOTH EYES 09/10/18 09:00 10/10/18 08:59 09/13/18 08:30 Hydroxyzine HCl (Atarax) 25 mg Q6H PRN ORAL Itching 09/10/18 02:45 10/10/18 02:44 Latanoprost (Xalatan) 1 drop BEDTIME BOTH EYES 09/10/18 21:00 10/10/18 20:59 09/12/18 21:05 Levothyroxine Sodium (Synthroid) 88 mcg DAILY@0630 ORAL 09/14/18 06:30 10/14/18 06:29 Magnesium Hydroxide (Mom) 30 ml DAILYPRN PRN ORAL Constipation 09/11/18 16:45 10/11/18 16:44 Promethazine HCl/ Codeine (Phenergan with Codeine) 5 ml Q4H PRN ORAL For Cough 09/09/18 21:30 10/09/18 21:29 Vancomycin HCl (Vanco rx to dose) 1 ea DAILY PRN MISC Per rx protocol 09/09/18 21:30 10/09/18 21:29 Vancomycin HCl 1.5 gm/Dextrose 275 ml @ 137.5 mls/ hr Q24H IVPB 09/13/18 04:00 09/18/18 03:59 09/13/18 04:30 Butch Johns MD Sep 13, 2018 13:05
--- NOTE | 2018-09-13 13:50 | Consultation ---
Consult Note Consult Note dictated Dashawn Mary MD Sep 13, 2018 13:50
[2018-09-13] MEDS ORDERED: ALPHAGAN OPHTHALM SCH (14:00)
[2018-09-13 16:00] VITALS: BP 132/80
[2018-09-13] MEDS: ALPHAGAN OPHTHALM SCH (16:00)
[2018-09-13] MEDS: DORZOLAMIDE OPHTHALM SCH (17:13)
[2018-09-13] MEDS: TIMOLOL OPHTHALM SCH (17:13)
--- NOTE | 2018-09-13 19:30 | NUR ---
HAND-OFF: Report given to Dayanara DIAZ. Patient is stable.
--- NOTE | 2018-09-13 19:45 | Consultation ---
DATE OF CONSULTATION: 09/13/2018 PULMONARY CONSULTATION CHIEF COMPLAINT: Cough and sputum. HISTORY OF PRESENT ILLNESS: The patient is a 73-year-old woman, who came to the hospital because of several days of increasing cough and sputum production. She does not see and cannot report the nature of the sputum, but has been told there is no blood in it. She was evaluated and found to have a right lower lobe infiltrate and has been treated with intravenous antibiotic. She states that she is improving. The patient was recently hospitalized at [facility] and had a left breast lumpectomy for cancer. A PET-CT was done that showed a positive activity in the right upper lobe. A follow-up CT scan showed this is resolving and felt to be inflammatory. I reviewed the CT scans and the findings in the right lower lobe on the present studies were not present in July. PAST MEDICAL HISTORY: She is a past smoker, but quit many years ago. She does not have a history of lung disease to her knowledge. She has a history of hypertension, pacemaker, Graves disease, thyroidectomy, exophthalmos glaucoma with blindness, vitamin D deficiency, paroxysmal atrial fibrillation, and breast cancer as noted above with recent left breast lumpectomy. MEDICATIONS: Reviewed. She is presently on intravenous antibiotics. ALLERGIES: None. REVIEW OF SYSTEMS: Otherwise unremarkable. PHYSICAL EXAMINATION: GENERAL: The patient is alert and responds appropriately. VITAL SIGNS: Stable. There is no high fever. HEENT: The head is normocephalic. The eyes show exophthalmos and poor vision. NECK: Supple. CHEST: Fairly clear with no consolidation. CARDIAC: Rate and rhythm is regular without murmur or gallop. ABDOMEN: Soft and nontender. Liver and spleen are not enlarged. EXTREMITIES: No clubbing, cyanosis, or edema. LABORATORY AND DIAGNOSTIC DATA: Laboratory studies and imaging are reviewed. IMPRESSION: 1. Right lower lobe pneumonia with possible cavitation. 2. Recent left breast lumpectomy for cancer. 3. Lung nodule decreasing in size. 4. History of Graves disease with blindness. 5. Status post thyroidectomy. 6. Hypertensive heart disease with pacemaker. 7. Diastolic heart failure. 8. Paroxysmal atrial fibrillation. PLAN: We will continue on antibiotics and respiratory treatment. She seems to be improving. Followup imaging studies should be completed until the infiltrates are resolved. Sputum has been ordered for acid-fast and we will send for a QuantiFERON tuberculosis and whole blood tests. Dashawn Mary M.D. DR: BETTY JOB#: [id number] CC: Agnieszka Ohara M.D. ; FAX#: [phone]
[2018-09-13 20:00] VITALS: BP 132/75
--- NOTE | 2018-09-13 20:16 | NUR ---
NURSE NOTES: Pt is awake and alert. Pt is on NC with no sign of sob or resp distress. Will continue with plan of care
[2018-09-13] MEDS: LUMIGAN 0.01% BOTH EYES SCH (22:24)
[2018-09-14] VITALS: BP 133/68
[2018-09-14] MEDS: ALPHAGAN OPHTHALM SCH ×3 (01:09→16:04)
[2018-09-14] MEDS: Albuterol/Ipratropium 3ml neb HHN SCH ×5 (02:59→19:51)
[2018-09-14 04:00] VITALS: BP 133/74
[2018-09-14] MEDS: Vancomycin 1.5gm/D5W 275ml IVPB SCH ×2 (05:15)
--- NOTE | 2018-09-14 05:45 | Progress Note ---
DATE: 09/13/2018 CARDIOLOGY PROGRESS NOTE SUBJECTIVE: The patient has slightly less cough and congestion. No shortness of breath at rest. Pulmonary evaluation was appreciated. OBJECTIVE: VITAL SIGNS: Blood pressure 133/68, pulse 58, respiratory rate 17, afebrile, and room air oxygen sat 99%. LUNGS: Few rhonchi at the right base. CARDIAC: Regular rhythm and rate. Normal S1 and S2. ABDOMEN: Soft. EXTREMITIES: No edema. LABORATORY DATA: No new imaging. IMPRESSION: 1. Right lower lobe pneumonia with cavitation. 2. Recent left lumpectomy for breast cancer. 3. Hilar adenopathy. 4. lung nodule decreasing in size concern over right lower lobe mass, not present on previous CT scan. 5. Permanent pacemaker with stable function. 6. Hypertensive heart disease with controlled blood pressure. 7. Diastolic dysfunction with no signs of acute congestive heart failure. 8. Graves disease with exophthalmos, status post thyroidectomy. RECOMMENDATIONS: 1. Antimicrobials. 2. Respiratory hygiene. 3. Follow up acid-fast today and QuantiFERON gold studies. 4. Serial imaging of the chest. 5. Defer radiation therapy for now. 6. Defer decision regarding diagnostic bronchoscopy until infection clears and follow up imaging studies are reviewed. Jose Raul Lee M.D. : TEN JOB#: [id number] CC:
[2018-09-14 07:54] LABS: BASOPHILS % (AUTO) 0.8 % (0.0-2.0); EOSINOPHILS % (AUTO) 5.9 % (0.0-3.0); HEMATOCRIT 29.7 % (37.0-47.0); HEMOGLOBIN 9.6 G/DL (12.0-16.0); MEAN CORPUSCULAR VOLUME 82 FL (80-99); MONOCYTES % (AUTO) 8.4 % (1.0-10.0); PLATELET COUNT 259 K/UL (150-450); RED BLOOD COUNT 3.63 M/UL (4.20-5.40); RED CELL DISTRIBUTION WIDTH 16.3 % (11.6-14.8); WHITE BLOOD COUNT 6.1 K/UL (4.8-10.8)
[2018-09-14 08:00] VITALS: BP 142/89
[2018-09-14 08:09] LABS: ANION GAP 9 mmol/L (5-15); BLOOD UREA NITROGEN 10 mg/dL (7-18); CALCIUM 9.3 MG/DL (8.5-10.1); CARBON DIOXIDE 25 MMOL/L (21-32); CHLORIDE 104 MMOL/L (98-107); CREATININE 1.1 MG/DL (0.55-1.30); POTASSIUM 4.3 MMOL/L (3.5-5.1); SODIUM 138 MMOL/L (136-145)
--- NOTE | 2018-09-14 08:30 | NUR ---
NURSE NOTES: Patient lying in bed awake. No complain of pain or distress at this time. Skin intact and dry. Remain on airborne isolation. IV dressing intact and dry. Bed lowest position. Call light within reach. Will continue to monitor.
[2018-09-14] MEDS: Cefepime HCl 1 GM in D5W 55 ML IVPB SCH (08:57)
[2018-09-14] MEDS: DORZOLAMIDE OPHTHALM SCH ×2 (08:57→17:50)
[2018-09-14] MEDS: TIMOLOL OPHTHALM SCH ×2 (08:57→17:50)
[2018-09-14] MEDS: Calcium Carbonate 500mg w/Vit D 200iu tab ORAL SCH ×3 (08:58→17:49)
--- NOTE | 2018-09-14 09:11 | General Progress Note ---
Assessment/Plan Problem List: (1) Constipation ICD Codes: K59.00 - Constipation, unspecified SNOMED: 61370700 (2) Bronchitis ICD Codes: J40 - Bronchitis, not specified as acute or chronic SNOMED: 93232822 (3) Pneumonia ICD Codes: J18.9 - Pneumonia, unspecified organism SNOMED: 346762891 Assessment/Plan cont current rx abx per id bowel regime monitor cxr resp care cough rx pulm eval appreciated ppd and sputum afb Subjective ROS Limited/Unobtainable: No Allergies: Coded Allergies: SCALLOPS (Verified Allergy, Unknown, 05/29/17) Subjective no events. in resp isolation. cough increased today. no hemoptysis or night sweats. no cp pulm input appreciated Objective Last 24 Hour Vital Signs Date Time Temp Pulse Resp B/P (MAP) Pulse Ox O2 Delivery O2 Flow Rate FiO2 09/14/18 07:15 68 16 99 Room Air 21 09/14/18 07:06 78 16 97 Room Air 09/14/18 04:00 98.8 65 18 133/74 (93) 100 09/14/18 02:59 Room Air 21 09/14/18 02:59 Room Air 21 09/14/18 00:00 98.9 58 17 133/68 (89) 99 09/13/18 23:29 64 16 99 Room Air 09/13/18 23:22 61 16 98 Room Air 09/13/18 22:58 99.2 09/13/18 21:00 Room Air 09/13/18 20:01 61 16 100 Room Air 09/13/18 20:00 99.2 62 18 132/75 (94) 99 09/13/18 19:54 60 16 97 Room Air 09/13/18 16:00 98.7 73 18 132/80 (97) 98 09/13/18 15:07 70 16 100 Room Air 09/13/18 15:00 66 16 98 Room Air 09/13/18 12:00 98.3 61 18 129/75 (93) 97 09/13/18 11:30 64 16 100 Room Air 09/13/18 11:20 62 16 97 Room Air 21 Intake and Output 09/13/18 09/14/18 19:00 07:00 Intake Total 2000 ml 360 ml Balance 2000 ml 360 ml Intake Oral 2000 ml 360 ml # Voids 3 2 Laboratory Tests 09/14/18 06:50: White Blood Count 6.1, Red Blood Count 3.63L, Hemoglobin 9.6L, Hematocrit 29.7L , Mean Corpuscular Volume 82, Mean Corpuscular Hemoglobin 26.6L, Mean Corpuscular Hemoglobin Concent 32.4, Red Cell Distribution Width 16.3H, Platelet Count 259, Mean Platelet Volume 6.0L, Neutrophils (%) (Auto) 43.0L, Lymphocytes (%) (Auto) 42.0, Monocytes (%) (Auto) 8.4, Eosinophils (%) (Auto) 5.9H, Basophils (%) (Auto) 0.8, Sodium Level 138, Potassium Level 4.3, Chloride Level 104, Carbon Dioxide Level 25, Anion Gap 9, Blood Urea Nitrogen 10, Creatinine 1.1, Estimat Glomerular Filtration Rate , Glucose Level 91, Calcium Level 9.3, TB Test (T-Spot) [Pending], TB Test Nil Control (T-Spot) [Pending], TB Test Panel A (T-Spot) [Pending], TB Test Panel B (T-Spot) [Pending], TB Test Positive Control (T-Spot) [Pending] Height (Feet): 5 Height (Inches): 6.00 Weight (Pounds): 157 Objective General Appearance: WD/WN, alert Neck: supple Cardiovascular: normal rate Respiratory/Chest: chest wall non-tender, lungs clear, normal breath sounds Abdomen: normal bowel sounds, non tender, soft, no organomegaly Edema: no edema noted Arm (L), no edema noted Arm (R), no edema noted Leg (L), no edema noted Leg (R), no edema noted Pedal (L), no edema noted Pedal (R), no edema noted Generalized Neurologic: no motor/sensory deficits Garry Rangel MD Sep 14, 2018 09:11
--- NOTE | 2018-09-14 11:06 | Pulmonology Progress Note ---
Assessment/Plan Assessment/Plan 1. Right lower lobe pneumonia with possible cavitation. 2. Recent left breast lumpectomy for cancer. 3. Lung nodule decreasing in size. 4. History of Graves disease with blindness. 5. Status post thyroidectomy. 6. Hypertensive heart disease with pacemaker. 7. Diastolic heart failure. 8. Paroxysmal atrial fibrillation. cont abx await AFB and TB spot test continue isolation for now Subjective Constitutional: Denies: fever Respiratory: Denies: productive cough, hemoptysis, shortness of breath, pleuritic pain Allergies: Coded Allergies: SCALLOPS (Verified Allergy, Unknown, 05/29/17) Objective Last 24 Hour Vital Signs Date Time Temp Pulse Resp B/P (MAP) Pulse Ox O2 Delivery O2 Flow Rate FiO2 09/14/18 10:48 72 16 99 Room Air 21 09/14/18 10:38 70 16 98 Room Air 21 09/14/18 09:00 Room Air 09/14/18 08:00 98.0 98 21 142/89 (106) 100 09/14/18 07:15 68 16 99 Room Air 21 09/14/18 07:06 78 16 97 Room Air 21 09/14/18 04:00 98.8 65 18 133/74 (93) 100 09/14/18 02:59 Room Air 21 09/14/18 02:59 Room Air 21 09/14/18 00:00 98.9 58 17 133/68 (89) 99 09/13/18 23:29 64 16 99 Room Air 21 09/13/18 23:22 61 16 98 Room Air 21 09/13/18 22:58 99.2 09/13/18 21:00 Room Air 09/13/18 20:01 61 16 100 Room Air 21 09/13/18 20:00 99.2 62 18 132/75 (94) 99 09/13/18 19:54 60 16 97 Room Air 21 09/13/18 16:00 98.7 73 18 132/80 (97) 98 09/13/18 15:07 70 16 100 Room Air 21 09/13/18 15:00 66 16 98 Room Air 21 09/13/18 12:00 98.3 61 18 129/75 (93) 97 09/13/18 11:30 64 16 100 Room Air 21 09/13/18 11:20 62 16 97 Room Air 21 Intake and Output 09/13/18 09/14/18 18:59 06:59 Intake Total 2000 ml 360 ml Balance 2000 ml 360 ml Intake Oral 2000 ml 360 ml # Voids 3 2 General Appearance: no acute distress Respiratory/Chest: lungs clear Cardiovascular: normal rate Microbiology Date/Time Source Procedure Growth Status 09/13/18 12:00 Sputum Gram Stain Pending Resulted 09/13/18 12:00 Sputum Sputum Culture - Preliminary NORMAL UPPER RESPIRATORY NENITA AT 24 ... Resulted Laboratory Tests 09/14/18 06:50: White Blood Count 6.1, Red Blood Count 3.63L, Hemoglobin 9.6L, Hematocrit 29.7L , Mean Corpuscular Volume 82, Mean Corpuscular Hemoglobin 26.6L, Mean Corpuscular Hemoglobin Concent 32.4, Red Cell Distribution Width 16.3H, Platelet Count 259, Mean Platelet Volume 6.0L, Neutrophils (%) (Auto) 43.0L, Lymphocytes (%) (Auto) 42.0, Monocytes (%) (Auto) 8.4, Eosinophils (%) (Auto) 5.9H, Basophils (%) (Auto) 0.8, Sodium Level 138, Potassium Level 4.3, Chloride Level 104, Carbon Dioxide Level 25, Anion Gap 9, Blood Urea Nitrogen 10, Creatinine 1.1, Estimat Glomerular Filtration Rate , Glucose Level 91, Calcium Level 9.3, TB Test (T-Spot) [Pending], TB Test Nil Control (T-Spot) [Pending], TB Test Panel A (T-Spot) [Pending], TB Test Panel B (T-Spot) [Pending], TB Test Positive Control (T-Spot) [Pending] Current Medications Medications (Trade) Dose Ordered Sig/Dafne Route PRN Reason Start Time Stop Time Status Last Admin Dose Admin Acetaminophen (Tylenol) 650 mg Q4H PRN ORAL Mild Pain/Temp > 100.5 09/09/18 21:30 10/09/18 21:29 09/13/18 22:28 Al Hydroxide/Mg Hydroxide (Mylanta) 30 ml Q6H PRN ORAL dyspepsia 09/09/18 21:30 10/09/18 21:29 Albuterol/ Ipratropium (Albuterol/ Ipratropium) 3 ml Q4HRT HHN 09/09/18 23:00 09/14/18 22:59 09/14/18 10:38 Allopurinol (Allopurinol) 150 mg DAILY ORAL 09/10/18 09:00 10/10/18 08:59 09/14/18 08:57 Calcium Carbonate (OsCal D) 1 tab THREE TIMES A DAY ORAL 09/10/18 09:00 10/10/18 08:59 09/14/18 08:58 Cefepime HCl 1 gm/ Dextrose 55 ml @ 110 mls/hr DAILY IVPB 09/11/18 09:00 09/18/18 08:59 09/14/18 08:57 Hydroxyzine HCl (Atarax) 25 mg Q6H PRN ORAL Itching 09/10/18 02:45 10/10/18 02:44 Levothyroxine Sodium (Synthroid) 88 mcg DAILY@0630 ORAL 09/14/18 06:30 10/14/18 06:29 09/14/18 05:56 Magnesium Hydroxide (Mom) 30 ml DAILYPRN PRN ORAL Constipation 09/11/18 16:45 10/11/18 16:44 Patient Own Medication (Patient's Own Med) 1 ea BEDTIME BOTH EYES 09/13/18 21:00 10/13/18 20:59 09/13/18 22:24 Patient Own Medication (Patient's Own Med) 1 ea BID OPHTHALM 09/13/18 18:00 10/13/18 17:59 09/14/18 08:57 Patient Own Medication (Patient's Own Med) 1 ea Q8H OPHTHALM 09/13/18 16:00 10/13/18 15:59 09/14/18 08:56 Promethazine HCl/ Codeine (Phenergan with Codeine) 5 ml Q4H PRN ORAL For Cough 09/09/18 21:30 10/09/18 21:29 Vancomycin HCl (Vanco rx to dose) 1 ea DAILY PRN MISC Per rx protocol 09/09/18 21:30 10/09/18 21:29 Vancomycin HCl 1.5 gm/Dextrose 275 ml @ 137.5 mls/ hr Q24H IVPB 09/13/18 04:00 09/18/18 03:59 09/14/18 05:15 Dashawn Mary MD Sep 14, 2018 11:06
[2018-09-14 12:00] VITALS: BP 136/89
--- NOTE | 2018-09-14 13:27 | General Progress Note ---
Assessment/Plan Problem List: (1) Anxiety disorder ICD Codes: F41.9 - Anxiety disorder, unspecified SNOMED: [id number] Assessment/Plan no meds provided supportive therapy educated the pt about her medical condition Subjective Neurologic/Psychiatric: Reports: anxiety Allergies: Coded Allergies: SCALLOPS (Verified Allergy, Unknown, 05/29/17) Subjective the pt was irritable and anxious about her medical condition the pt was overtly concerned and stated that she is confused about her medical condition Objective Last 24 Hour Vital Signs Date Time Temp Pulse Resp B/P (MAP) Pulse Ox O2 Delivery O2 Flow Rate FiO2 09/14/18 12:00 98.1 85 21 136/89 (105) 98 09/14/18 10:48 72 16 99 Room Air 21 09/14/18 10:38 70 16 98 Room Air 21 09/14/18 09:00 Room Air 09/14/18 08:00 98.0 98 21 142/89 (106) 100 09/14/18 07:15 68 16 99 Room Air 21 09/14/18 07:06 78 16 97 Room Air 21 09/14/18 04:00 98.8 65 18 133/74 (93) 100 09/14/18 02:59 Room Air 21 09/14/18 02:59 Room Air 21 09/14/18 00:00 98.9 58 17 133/68 (89) 99 09/13/18 23:29 64 16 99 Room Air 21 09/13/18 23:22 61 16 98 Room Air 21 09/13/18 22:58 99.2 09/13/18 21:00 Room Air 09/13/18 20:01 61 16 100 Room Air 21 09/13/18 20:00 99.2 62 18 132/75 (94) 99 09/13/18 19:54 60 16 97 Room Air 21 09/13/18 16:00 98.7 73 18 132/80 (97) 98 09/13/18 15:07 70 16 100 Room Air 21 09/13/18 15:00 66 16 98 Room Air 21 Intake and Output 09/13/18 09/14/18 18:59 06:59 Intake Total 2000 ml 360 ml Balance 2000 ml 360 ml Intake Oral 2000 ml 360 ml # Voids 3 2 Laboratory Tests 09/14/18 06:50: White Blood Count 6.1, Red Blood Count 3.63L, Hemoglobin 9.6L, Hematocrit 29.7L , Mean Corpuscular Volume 82, Mean Corpuscular Hemoglobin 26.6L, Mean Corpuscular Hemoglobin Concent 32.4, Red Cell Distribution Width 16.3H, Platelet Count 259, Mean Platelet Volume 6.0L, Neutrophils (%) (Auto) 43.0L, Lymphocytes (%) (Auto) 42.0, Monocytes (%) (Auto) 8.4, Eosinophils (%) (Auto) 5.9H, Basophils (%) (Auto) 0.8, Sodium Level 138, Potassium Level 4.3, Chloride Level 104, Carbon Dioxide Level 25, Anion Gap 9, Blood Urea Nitrogen 10, Creatinine 1.1, Estimat Glomerular Filtration Rate , Glucose Level 91, Calcium Level 9.3, TB Test (T-Spot) [Pending], TB Test Nil Control (T-Spot) [Pending], TB Test Panel A (T-Spot) [Pending], TB Test Panel B (T-Spot) [Pending], TB Test Positive Control (T-Spot) [Pending] Height (Feet): 5 Height (Inches): 6.00 Weight (Pounds): 157 General Appearance: WD/WN, alert, moderate distress Neurologic: oriented x 3, responsive, depressed affect Butch Johns MD Sep 14, 2018 13:27
[2018-09-14 16:00] VITALS: BP 142/72
--- NOTE | 2018-09-14 16:15 | Consultation ---
DATE OF CONSULTATION: 09/14/2018 INFECTIOUS DISEASE CONSULTATION CONSULTING PHYSICIAN: Umu Rosas M.D. REFERRING PHYSICIAN: Jose Raul Lee M.D. REASON FOR CONSULTATION: To rule out tuberculosis. HISTORY OF PRESENT ILLNESS: This is a 73-year-old lady with history of hypertension, Graves disease status post thyroidectomy, exophthalmos, glaucoma, and breast cancer status post left-sided lumpectomy, who came in with cough along with shortness of breath. A chest x-ray showed right lower lobe infiltrate. CT scan showed a lung nodule in the right upper lobe. A biopsy was planned, but it did decrease in size and Infectious Disease consultation has been obtained for antibiotics. PAST MEDICAL HISTORY: 1. History of hypertension. 2. Graves disease. 3. Status post thyroidectomy and iodine therapy. 4. Status post pacemaker placement. 5. History of exophthalmos. 6. Glaucoma with blindness. 7. Vitamin D deficiency. 8. Hyperuricemia. 9. Atrial fibrillation. 10. Breast cancer, status post left-sided lumpectomy. SOCIAL HISTORY: She used to be a smoker. She quit many years ago. She drinks alcohol socially. She smokes cannabis. FAMILY HISTORY: Positive for colon cancer in her sister. REVIEW OF SYSTEMS: RESPIRATORY: No fever or chills. She has a cough. She has shortness of breath. No chest pain. CARDIAC: No chest pain. No palpitations. No dizziness. No syncope. GASTROINTESTINAL: No nausea. No vomiting. No abdominal pain. No diarrhea. MEDICATIONS: As an inpatient, she is on levothyroxine, vancomycin, cefepime, milk of magnesia, calcium carbonate, allopurinol, hydroxyzine, albuterol and ipratropium, Tylenol, Mylanta, and promethazine with codeine. ALLERGIES: To scallops noted and [place]. PHYSICAL EXAMINATION: VITAL SIGNS: Temperature 98, T-max of 99.2, pulse 98, respiratory rate 21, and blood pressure 142/89. O2 saturation of 100%. HEENT: Pupils are equally reactive to light and accommodation. Mouth appears clean without thrush. NECK: Supple. No adenopathy. No JVD. CARDIOVASCULAR: Regular rate and rhythm. No murmurs. LUNGS: Clear to auscultation bilaterally. No crackles. No wheezes. ABDOMEN: Soft and nontender. No organomegaly. EXTREMITIES: No cyanosis. No clubbing. No edema. LABORATORY AND DIAGNOSTIC DATA: White count 6.1, hemoglobin 9.6, hematocrit 29.7, MCV 82, and platelet count 259, with neutrophils of 43%. Sodium 138, potassium 4.3, chloride 104, bicarb 25, BUN 10, and creatinine 1.1. Glucose 91. Calcium 9.3. Total bilirubin 0.2, AST 16, ALT 10, and alkaline phosphatase 58. Total protein 7, albumin 2.9. TB test, T-SPOT test is pending. Sputum culture is showing normal chris on 09/13/2018. On 09/09/2018, sputum culture is growing Genia albicans and usual respiratory chris. CT chest on 09/11/2018 showing 3 x 2.9 x 2.5 cm fluid collection versus cystic mass on the left anterior breast. Right lower lobe consolidation with possible cavitation noted. Small right-sided pleural effusion noted. Trace pericardial effusion noted. Prominent enlarged pretracheal and precarinal lymph nodes noted. ASSESSMENT: 1. This is a 73-year-old lady with history of hypertension, Graves disease, and breast cancer, status post lumpectomy, who comes in with cough and shortness of breath. CT chest is showing right lower lobe infiltrate with possible cavitation. We would be concerned regarding pneumonia. 2. We would like to rule out tuberculosis as a possibility. 3. Hypertension. PLAN: 1. Continue respiratory isolation. 2. We will order a QuantiFERON TB Gold test. 3. We will order sputum for AFB. 4. We will follow up the patient clinically. 5. Continue vancomycin and cefepime for now. I would like to thank Dr. Lee for this consultation. Umu Rosas M.D. DR: DEE JOB#: [id number] CC:
--- NOTE | 2018-09-14 16:20 | NUR ---
NURSE NOTES: Sputum specimen collected and sent to lab for AFB.
--- NOTE | 2018-09-14 19:45 | NUR ---
HAND-OFF: Report given to Daus RN. Patient in stable condition.
--- NOTE | 2018-09-14 19:50 | NUR ---
NURSE NOTES: Received report from JOE Lomax. Received patient lying in bed AOX4, denies any pain, no distress noted. Pt on airborne isolation. IV dressing intact and dry. Bed lowest position. Call light within reach. Will continue to monitor.
[2018-09-14 20:00] VITALS: BP 122/73
[2018-09-14] MEDS: LUMIGAN 0.01% BOTH EYES SCH (21:04)
[2018-09-15] VITALS: BP 126/68
[2018-09-15] MEDS: ALPHAGAN OPHTHALM SCH ×3 (00:13→15:19)
[2018-09-15 04:00] VITALS: BP 121/75
[2018-09-15] MEDS: Vancomycin 1.5gm/D5W 275ml IVPB SCH ×2 (04:15)
--- NOTE | 2018-09-15 04:30 | NUR ---
NURSE NOTES: Pt c/o heartburn. Mylanta 30ml PO given. Will continue to monitor.
--- NOTE | 2018-09-15 05:01 | Progress Note ---
DATE: 09/14/2018 CARDIOLOGY PROGRESS NOTE SUBJECTIVE: The patient has less cough and congestion. No fevers or chills. Oncology consult is appreciated. OBJECTIVE: VITAL SIGNS: Blood pressure 122/73, pulse rate 67, respiratory rate 18, and oxygen saturation 97%. LUNGS: Coarse breath sounds. Rhonchi at the right. HEART: Regular rhythm and rate. Normal S1, S2. ABDOMEN: Soft. EXTREMITIES: No edema. LABORATORY DATA: White count 6.1 and hemoglobin 9.6. Potassium 4.3. IMPRESSION: 1. Right lower lobe pneumonia. 2. Breast cancer, status post lumpectomy. 3. Pacemaker. 4. Hypertensive heart disease. 5. Possible lung mass or caseating tumor. PLAN: 1. Antimicrobials. 2. Follow up QuantiFERON-TB Gold. 3. Continue antimicrobials. 4. Follow up imaging studies as an outpatient. 5. Defer XRT until infection clears. Jose Raul Lee M.D. DR: LUL JOB#: [id number] CC:
--- NOTE | 2018-09-15 06:31 | Consultation ---
DATE OF CONSULTATION: 09/14/2018 HEMATOLOGY/ONCOLOGY CONSULTATION CONSULTING PHYSICIAN: Nely Harding M.D. REFERRING PHYSICIAN: Garry Rangel M.D. REASON FOR CONSULTATION: Breast cancer and pulmonary nodule. HISTORY OF PRESENT ILLNESS: The patient is a 73-year-old female with recent history of breast cancer. The patient did undergo a left-sided lumpectomy, axillary lymph node dissection on 07/23/2018 at [facility]. Pathology case number is [id number]. 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 The sentinel lymph nodes were all negative making T1AN0 lesion. The patient's breast markers at that time demonstrated 99% ER positivity, 25% progesterone positivity, HER2/rupert did have a score of 0. The patient currently has been admitted to the hospital for possible history of pneumonia and currently being ruled out for tuberculosis and . The patient did undergo a CT scan of the chest, abdomen and pelvis on 06/15/2018 at [facility] demonstrating PET positive nodule in the medial aspect of the left breast the patient's known history of breast cancer. PET positive 9 mm nodule in the posterior right upper lobe. The right ventricular pacer lead was bilateral intrarenal calculi, ____ atrophic left kidney with mild hydronephrosis was also noted. significant coughing ruled out for tuberculosis at [facility]. PAST MEDICAL HISTORY: Hypertension, permanent pacemaker placement, history of Graves' disease, history of legal blindness, history of thyroidectomy, status post iodine-131 therapy, history of exophthalmos, history of glaucoma, history of vitamin D deficiency, chronic constipation, hyperuricemia, paroxysmal atrial fibrillation, breast cancer, left-sided lumpectomy. PAST SURGICAL HISTORY: As above. ALLERGIES: Per medical records. FAMILY HISTORY: The patient SOCIAL HISTORY: The patient denies any recent tobacco, alcohol, or drugs. MEDICATIONS: Per electronic medical records. REVIEW OF SYSTEMS: CONSTITUTIONAL: The patient denies any headaches. The patient does have poor vision and legal blindness. PULMONARY: The patient denies shortness of breath. CARDIAC: The patient denies chest pain. NEUROLOGIC: The patient has no focal weakness or numbness. SKIN: The patient denies any bruising or petechiae. PHYSICAL EXAMINATION: GENERAL: The patient is a well-developed female, in no acute distress. VITAL SIGNS: Temperature 98.6, blood pressure 130/90, pulse 67, and respiratory rate 18. HEENT: There is exophthalmos, blindness bilaterally. CHEST: Rhonchi bilaterally. CARDIAC: Regular rhythm. S1 and S2. ABDOMEN: Soft and nontender. EXTREMITIES: There is trace edema. BREASTS: There is left-sided postsurgical change as well as axillary postsurgical scar. LABORATORY AND DIAGNOSTIC DATA: Laboratory as well as investigational studies show white count of 6.1, hemoglobin 9.6, platelet count of 259,000. The patient has undergone a chest CT here at [facility] September 11, 2018 demonstrated 3 x 2.9 x 2.5 cm subcutaneous fluid collection, as noted above, 3 x 1.8 cm region of consolidation in the dependent right lower lobe, possible cavitation, atelectasis, pneumonia or mass, prominent enlarged pretracheal and precarinal lymph nodes, largest measuring 1.3 x 1.2 cm was noted as well. ASSESSMENT: 1. Breast cancer with DCIS, highly doubt consideration of metastatic disease at the current time. The patient will need to undergo radiation therapy as well as hormonal therapy with Arimidex 5 to 8 years. 2. Pulmonary abnormality, the patient is to follow up with team leader/research psychologist, being ruled out for tuberculosis. Consideration of bronchoscopy can be made. The patient does need close monitoring. 3. Anemia. Full anemia workup will be done as outpatient basis. 4. History of blindness per primary team. 5. Increase ambulation. 6. DVT prophylaxis. Nely Harding M.D. DR: Jayla JOB#: [id number] CC:
--- NOTE | 2018-09-15 07:32 | NUR ---
HAND-OFF: Report given to JOE Lomax. Pt in stable condition.
--- NOTE | 2018-09-15 07:35 | NUR ---
NURSE NOTES: Patient lying in bed awake. Remain on airborne isolation. No complain of pain or distress at this time. Skin intact and dry. IV dressing intact and dry. Bed lowest position. Call light within reach. Will continue to monitor.
[2018-09-15 08:00] VITALS: BP 128/79
[2018-09-15] MEDS: Calcium Carbonate 500mg w/Vit D 200iu tab ORAL SCH ×3 (08:46→17:40)
[2018-09-15] MEDS: TIMOLOL OPHTHALM SCH ×2 (08:47→17:40)
[2018-09-15] MEDS: Cefepime HCl 1 GM in D5W 55 ML IVPB SCH (08:47)
[2018-09-15] MEDS: DORZOLAMIDE OPHTHALM SCH ×2 (08:47→17:40)
[2018-09-15 12:00] VITALS: BP 108/66
--- NOTE | 2018-09-15 12:50 | NUR ---
NURSE NOTES: Collected sputum specimen for AFB and sent to lab.
--- NOTE | 2018-09-15 12:51 | Pulmonology Progress Note ---
Assessment/Plan Assessment/Plan 1. Right lower lobe pneumonia with possible cavitation. 2. Recent left breast lumpectomy for cancer. 3. Lung nodule decreasing in size. 4. History of Graves disease with blindness. 5. Status post thyroidectomy. 6. Hypertensive heart disease with pacemaker. 7. Diastolic heart failure. 8. Paroxysmal atrial fibrillation. cont abx await AFB and TB spot test continue isolation for now f/u CXR Subjective Constitutional: Reports: no symptoms Respiratory: Reports: productive cough - less Allergies: Coded Allergies: SCALLOPS (Verified Allergy, Unknown, 05/29/17) Objective Last 24 Hour Vital Signs Date Time Temp Pulse Resp B/P (MAP) Pulse Ox O2 Delivery O2 Flow Rate FiO2 09/15/18 09:00 Room Air 09/15/18 08:00 99.2 70 18 128/79 (95) 98 09/15/18 04:00 98.5 63 17 121/75 (90) 97 09/15/18 00:00 98.1 69 16 126/68 (87) 97 09/14/18 21:36 69 18 Room Air 21 09/14/18 21:35 69 18 100 Room Air 21 09/14/18 21:00 Room Air 09/14/18 20:00 98.3 67 18 122/73 (89) 97 09/14/18 19:51 69 18 99 Room Air 21 09/14/18 16:00 97.9 88 20 142/72 (95) 100 09/14/18 15:00 Room Air 21 09/14/18 15:00 Room Air 21 Intake and Output 09/14/18 09/15/18 19:00 07:00 Intake Total 515 ml Balance 515 ml Intake Oral 240 ml IV Total 275 ml # Voids 2 1 # Bowel Movements 1 General Appearance: no acute distress HEENT: atraumatic Respiratory/Chest: other - R base consolidation Cardiovascular: normal rate Microbiology Date/Time Source Procedure Growth Status 09/13/18 12:00 Sputum Gram Stain - Final Complete 09/13/18 12:00 Sputum Sputum Culture - Final NORMAL UPPER RESPIRATORY NENITA PRESENT Complete Current Medications Medications (Trade) Dose Ordered Sig/Dafne Route PRN Reason Start Time Stop Time Status Last Admin Dose Admin Acetaminophen (Tylenol) 650 mg Q4H PRN ORAL Mild Pain/Temp > 100.5 09/09/18 21:30 10/09/18 21:29 09/14/18 16:31 Al Hydroxide/Mg Hydroxide (Mylanta) 30 ml Q6H PRN ORAL dyspepsia 09/09/18 21:30 10/09/18 21:29 09/15/18 04:35 Allopurinol (Allopurinol) 150 mg DAILY ORAL 09/10/18 09:00 10/10/18 08:59 09/15/18 08:46 Calcium Carbonate (OsCal D) 1 tab THREE TIMES A DAY ORAL 09/10/18 09:00 10/10/18 08:59 09/15/18 12:30 Cefepime HCl 1 gm/ Dextrose 55 ml @ 110 mls/hr DAILY IVPB 09/11/18 09:00 09/18/18 08:59 09/15/18 08:47 Hydroxyzine HCl (Atarax) 25 mg Q6H PRN ORAL Itching 09/10/18 02:45 10/10/18 02:44 Levothyroxine Sodium (Synthroid) 88 mcg DAILY@0630 ORAL 09/14/18 06:30 10/14/18 06:29 09/15/18 05:54 Magnesium Hydroxide (Mom) 30 ml DAILYPRN PRN ORAL Constipation 09/11/18 16:45 10/11/18 16:44 Patient Own Medication (Patient's Own Med) 1 ea BEDTIME BOTH EYES 09/13/18 21:00 10/13/18 20:59 09/14/18 21:04 Patient Own Medication (Patient's Own Med) 1 ea BID OPHTHALM 09/13/18 18:00 10/13/18 17:59 09/15/18 08:47 Patient Own Medication (Patient's Own Med) 1 ea Q8H OPHTHALM 09/13/18 16:00 10/13/18 15:59 09/15/18 08:46 Promethazine HCl/ Codeine (Phenergan with Codeine) 5 ml Q4H PRN ORAL For Cough 09/09/18 21:30 10/09/18 21:29 Vancomycin HCl (Vanco rx to dose) 1 ea DAILY PRN MISC Per rx protocol 09/09/18 21:30 10/09/18 21:29 Vancomycin HCl/ Dextrose 275 ml @ 137.5 mls/ hr Q24H IVPB 09/16/18 04:00 09/18/18 23:59 Dashawn Mary MD Sep 15, 2018 12:51
--- NOTE | 2018-09-15 13:59 | Infectious Diseases Prog Note ---
Assessment/Plan Assessment/Plan A; Pneumonia Cavitary lung lesion Breast cancer s/p recent lumpectomy Legally blind anemia Hypothyroidism P; Continue Vancomycin & Cefepime will f/u AFB smears & T spot test Subjective ROS Limited/Unobtainable: Yes Constitutional: Reports: no symptoms Respiratory: Reports: productive cough Cardiovascular: Reports: no symptoms Gastrointestinal/Abdominal: Reports: no symptoms Genitourinary: Reports: no symptoms Allergies: Coded Allergies: SCALLOPS (Verified Allergy, Unknown, 05/29/17) Objective Vital Signs Last 24 Hour Vital Signs Date Time Temp Pulse Resp B/P (MAP) Pulse Ox O2 Delivery O2 Flow Rate FiO2 09/15/18 12:00 98.1 66 18 108/66 (80) 98 09/15/18 09:00 Room Air 09/15/18 08:00 99.2 70 18 128/79 (95) 98 09/15/18 04:00 98.5 63 17 121/75 (90) 97 09/15/18 00:00 98.1 69 16 126/68 (87) 97 09/14/18 21:36 69 18 Room Air 21 09/14/18 21:35 69 18 100 Room Air 21 09/14/18 21:00 Room Air 09/14/18 20:00 98.3 67 18 122/73 (89) 97 09/14/18 19:51 69 18 99 Room Air 21 09/14/18 16:00 97.9 88 20 142/72 (95) 100 09/14/18 15:00 Room Air 21 09/14/18 15:00 Room Air 21 Height (Feet): 5 Height (Inches): 6.00 Weight (Pounds): 157 HEENT: other - blind Respiratory/Chest: lungs clear Breasts: other - scar of left breast sugery Cardiovascular: normal rate Abdomen: soft, non tender Extremities: no edema Neurologic/Psychiatric: alert, oriented x 3, responsive Microbiology Date/Time Source Procedure Growth Status 09/13/18 12:00 Sputum Gram Stain - Final Complete 09/13/18 12:00 Sputum Sputum Culture - Final NORMAL UPPER RESPIRATORY NENITA PRESENT Complete Current Medications Medications (Trade) Dose Ordered Sig/Dafne Route PRN Reason Start Time Stop Time Status Last Admin Dose Admin Acetaminophen (Tylenol) 650 mg Q4H PRN ORAL Mild Pain/Temp > 100.5 09/09/18 21:30 10/09/18 21:29 09/14/18 16:31 Al Hydroxide/Mg Hydroxide (Mylanta) 30 ml Q6H PRN ORAL dyspepsia 09/09/18 21:30 10/09/18 21:29 09/15/18 04:35 Allopurinol (Allopurinol) 150 mg DAILY ORAL 09/10/18 09:00 10/10/18 08:59 09/15/18 08:46 Calcium Carbonate (OsCal D) 1 tab THREE TIMES A DAY ORAL 09/10/18 09:00 10/10/18 08:59 09/15/18 12:30 Cefepime HCl 1 gm/ Dextrose 55 ml @ 110 mls/hr DAILY IVPB 09/11/18 09:00 09/18/18 08:59 09/15/18 08:47 Hydroxyzine HCl (Atarax) 25 mg Q6H PRN ORAL Itching 09/10/18 02:45 10/10/18 02:44 Levothyroxine Sodium (Synthroid) 88 mcg DAILY@0630 ORAL 09/14/18 06:30 10/14/18 06:29 09/15/18 05:54 Magnesium Hydroxide (Mom) 30 ml DAILYPRN PRN ORAL Constipation 09/11/18 16:45 10/11/18 16:44 Patient Own Medication (Patient's Own Med) 1 ea BEDTIME BOTH EYES 09/13/18 21:00 10/13/18 20:59 09/14/18 21:04 Patient Own Medication (Patient's Own Med) 1 ea BID OPHTHALM 09/13/18 18:00 10/13/18 17:59 09/15/18 08:47 Patient Own Medication (Patient's Own Med) 1 ea Q8H OPHTHALM 09/13/18 16:00 10/13/18 15:59 09/15/18 08:46 Promethazine HCl/ Codeine (Phenergan with Codeine) 5 ml Q4H PRN ORAL For Cough 09/09/18 21:30 10/09/18 21:29 Vancomycin HCl (Vanco rx to dose) 1 ea DAILY PRN MISC Per rx protocol 09/09/18 21:30 10/09/18 21:29 Vancomycin HCl/ Dextrose 275 ml @ 137.5 mls/ hr Q24H IVPB 09/16/18 04:00 09/18/18 23:59 Fabio Stovall MD Sep 15, 2018 13:59
--- NOTE | 2018-09-15 15:30 | NUR ---
NURSE NOTES: Collected sputum specimen for MTB PCR and sent to lab.
--- NOTE | 2018-09-15 15:53 | General Progress Note ---
Assessment/Plan Problem List: (1) Constipation ICD Codes: K59.00 - Constipation, unspecified SNOMED: 38971805 (2) Bronchitis ICD Codes: J40 - Bronchitis, not specified as acute or chronic SNOMED: 00530656 (3) Pneumonia ICD Codes: J18.9 - Pneumonia, unspecified organism SNOMED: 823187899 Status: stable, progressing Assessment/Plan cont current rx abx per id bowel regime monitor cxr resp care cough rx ppd and sputum afb Subjective ROS Limited/Unobtainable: No Constitutional: Reports: malaise, weakness HEENT: Reports: no symptoms Cardiovascular: Reports: no symptoms Respiratory: Reports: cough, shortness of breath Gastrointestinal/Abdominal: Reports: no symptoms Genitourinary: Reports: no symptoms Neurologic/Psychiatric: Reports: no symptoms Endocrine: Reports: no symptoms Hematologic/Lymphatic: Reports: no symptoms Allergies: Coded Allergies: SCALLOPS (Verified Allergy, Unknown, 05/29/17) All Systems: reviewed and negative except above Subjective no events. remains in isolation. decreased sob/cough. no night sweats. no fevers. no hemoptysis Objective Last 24 Hour Vital Signs Date Time Temp Pulse Resp B/P (MAP) Pulse Ox O2 Delivery O2 Flow Rate FiO2 09/15/18 12:00 98.1 66 18 108/66 (80) 98 09/15/18 09:00 Room Air 09/15/18 08:00 99.2 70 18 128/79 (95) 98 09/15/18 04:00 98.5 63 17 121/75 (90) 97 09/15/18 00:00 98.1 69 16 126/68 (87) 97 09/14/18 21:36 69 18 Room Air 21 09/14/18 21:35 69 18 100 Room Air 21 09/14/18 21:00 Room Air 09/14/18 20:00 98.3 67 18 122/73 (89) 97 09/14/18 19:51 69 18 99 Room Air 21 09/14/18 16:00 97.9 88 20 142/72 (95) 100 Intake and Output 09/14/18 09/15/18 18:59 06:59 Intake Total 515 ml Balance 515 ml Intake Oral 240 ml IV Total 275 ml # Voids 2 1 # Bowel Movements 1 Height (Feet): 5 Height (Inches): 6.00 Weight (Pounds): 157 Objective General Appearance: WD/WN, alert Neck: supple Cardiovascular: normal rate Respiratory/Chest: chest wall non-tender, lungs clear, normal breath sounds Abdomen: normal bowel sounds, non tender, soft, no organomegaly Edema: no edema noted Arm (L), no edema noted Arm (R), no edema noted Leg (L), no edema noted Leg (R), no edema noted Pedal (L), no edema noted Pedal (R), no edema noted Generalized Neurologic: no motor/sensory deficits Garry Rangel MD Sep 15, 2018 15:53
[2018-09-15 16:00] VITALS: BP 118/82
--- NOTE | 2018-09-15 16:14 | NUR ---
CASE MANAGEMENT: REVIEW 09/15/2018 SI: PNA. LUNG NODULE T 99.4 HR 82 RR 18 B/P 118/82 SATS 98% ON RA NO LABS TODAY IS: IV CEFEPIME QD IV VANCOMYCIN Q24 XARELTO PO QPM SYNTHROID PO QD : MED/SURG [facility]
--- NOTE | 2018-09-15 19:30 | NUR ---
HAND-OFF: Report given to Blanca DIAZ. Patient in stable condition.
--- NOTE | 2018-09-15 19:31 | NUR ---
NURSE NOTES: Received report & pt from Dami Carreno RN. Pt lying in bed, a&ox4, in room air, family member at bedside. No s/s of acute distress & no c/o pain. Skin intact. IV site intact & S/L'd. Informed pt that sputum sample needed tomorrow morning for AFB & verbalized understanding. Specimen cup given. Bed in lowest position, call light within reach. Will continue to monitor.
[2018-09-15 20:00] VITALS: BP 120/71
[2018-09-15] MEDS: LUMIGAN 0.01% BOTH EYES SCH (20:49)
--- NOTE | 2018-09-15 23:41 | NUR ---
NURSE NOTES: Refused 0000 VS
--- NOTE | 2018-09-16 00:01 | Progress Note ---
DATE: 09/15/2018 CARDIOLOGY PROGRESS NOTE: SUBJECTIVE: The patient has less congestion and cough. Appreciate Heme/Onc eval. OBJECTIVE: VITAL SIGNS: Afebrile, blood pressure 128/79, pulse 70, respirations 18, T max 99.2. LUNGS: Few rhonchi. HEART: Regular rhythm and rate. Normal S1, S2. ABDOMEN: Soft. EXTREMITIES: No edema. LABORATORY DATA: Labs from 09/14/2018 reviewed. IMPRESSION: 1. Clinically improved from possible cavitary pneumonia. 2. Status post lumpectomy for cancer. 3. Pacemaker. 4. Hypertensive heart disease. 5. Paroxysmal atrial fibrillation. PLAN: 1. Resume full anticoagulation. 2. Antimicrobial. 3. Respiratory hygiene. 4. Follow up imaging studies planned. 5. Await TB gold study. Jose Raul Lee M.D. DR: STEWART JOB#: [id number] CC:
[2018-09-16] MEDS: ALPHAGAN OPHTHALM SCH ×4 (00:25→23:47)
[2018-09-16 04:00] VITALS: BP 125/75
[2018-09-16] MEDS: Vancomycin 1.5gm Premix IVPB SCH (04:36)
--- NOTE | 2018-09-16 04:51 | NUR ---
NURSE NOTES: Sputum specimen collected & sent down to lab for AFB
--- NOTE | 2018-09-16 07:17 | NUR ---
HAND-OFF: Report given to JOE Lomax.
[2018-09-16 08:00] VITALS: BP 123/81
[2018-09-16] MEDS: DORZOLAMIDE OPHTHALM SCH ×2 (08:14→17:16)
[2018-09-16] MEDS: TIMOLOL OPHTHALM SCH ×2 (08:14→17:16)
[2018-09-16] MEDS: Calcium Carbonate 500mg w/Vit D 200iu tab ORAL SCH ×3 (08:14→17:15)
--- NOTE | 2018-09-16 08:37 | General Progress Note ---
Assessment/Plan Problem List: (1) Constipation ICD Codes: K59.00 - Constipation, unspecified SNOMED: 64797203 (2) Bronchitis ICD Codes: J40 - Bronchitis, not specified as acute or chronic SNOMED: 05473575 (3) Pneumonia ICD Codes: J18.9 - Pneumonia, unspecified organism SNOMED: 904164702 Assessment/Plan cont current rx abx per id bowel regime monitor cxr resp care cough rx ppd and sputum afb Subjective ROS Limited/Unobtainable: No Constitutional: Reports: malaise, weakness HEENT: Reports: no symptoms Cardiovascular: Reports: no symptoms Respiratory: Reports: cough Gastrointestinal/Abdominal: Reports: no symptoms Genitourinary: Reports: no symptoms Neurologic/Psychiatric: Reports: pre-existing deficit Endocrine: Reports: no symptoms Hematologic/Lymphatic: Reports: no symptoms Allergies: Coded Allergies: SCALLOPS (Verified Allergy, Unknown, 05/29/17) All Systems: reviewed and negative except above Subjective no events. no new complaints. remains in isolation. decreased sob/cough. no night sweats. no fevers. no hemoptysis TB tests all pending. 3rd AFB smear collected this am. Objective Last 24 Hour Vital Signs Date Time Temp Pulse Resp B/P (MAP) Pulse Ox O2 Delivery O2 Flow Rate FiO2 09/16/18 04:00 99.5 66 18 125/75 (92) 97 09/15/18 21:00 Room Air 09/15/18 20:00 98.3 66 18 120/71 (87) 98 09/15/18 16:00 99.4 82 18 118/82 (94) 98 09/15/18 12:00 98.1 66 18 108/66 (80) 98 09/15/18 09:00 Room Air Intake and Output 09/15/18 09/16/18 19:00 07:00 Intake Total 480 ml Balance 480 ml Intake Oral 480 ml # Voids 3 1 Laboratory Tests 09/15/18 15:23: M. tuberculosis Complex DNA (PCR) [Pending] 09/16/18 03:17: Vancomycin Level Trough 20.5H Height (Feet): 5 Height (Inches): 6.00 Weight (Pounds): 157 Objective General Appearance: WD/WN, alert Neck: supple Cardiovascular: normal rate Respiratory/Chest: chest wall non-tender, lungs clear, normal breath sounds Abdomen: normal bowel sounds, non tender, soft, no organomegaly Edema: no edema noted Arm (L), no edema noted Arm (R), no edema noted Leg (L), no edema noted Leg (R), no edema noted Pedal (L), no edema noted Pedal (R), no edema noted Generalized Neurologic: no motor/sensory deficits Garry Rangel MD Sep 16, 2018 08:37
[2018-09-16] MEDS: Cefepime HCl 1 GM in D5W 55 ML IVPB SCH (09:21)
--- NOTE | 2018-09-16 10:41 | Infectious Diseases Prog Note ---
Assessment/Plan Assessment/Plan antibiotics : vancomycin iv, cefepime A 1. cavitary pneumonia 2. r/o TB 3. breast cancer s/p left lumpectomy 4. hypothyroidism P 1. continue iv vancomycin, cefepime 2. will follow up cultures Subjective Constitutional: Denies: fever, chills Respiratory: Reports: dry cough - decreased; Denies: shortness of breath Gastrointestinal/Abdominal: Reports: nausea; Denies: vomiting, diarrhea Musculoskeletal: Denies: pain Allergies: Coded Allergies: SCALLOPS (Verified Allergy, Unknown, 05/29/17) Objective Vital Signs Last 24 Hour Vital Signs Date Time Temp Pulse Resp B/P (MAP) Pulse Ox O2 Delivery O2 Flow Rate FiO2 09/16/18 09:00 Room Air 09/16/18 08:00 98.6 83 20 123/81 (95) 95 09/16/18 04:00 99.5 66 18 125/75 (92) 97 09/15/18 21:00 Room Air 09/15/18 20:00 98.3 66 18 120/71 (87) 98 09/15/18 16:00 99.4 82 18 118/82 (94) 98 09/15/18 12:00 98.1 66 18 108/66 (80) 98 Height (Feet): 5 Height (Inches): 6.00 Weight (Pounds): 157 Respiratory/Chest: lungs clear Breasts: other - left breast wound clean Cardiovascular: normal rate, regular rhythm, no gallop/murmur Abdomen: soft, non tender Extremities: no edema Microbiology Date/Time Source Procedure Growth Status 09/13/18 12:00 Sputum Gram Stain - Final Complete 09/13/18 12:00 Sputum Sputum Culture - Final NORMAL UPPER RESPIRATORY NENITA PRESENT Complete Laboratory Tests Test 09/15/18 15:23 09/16/18 03:17 M. tuberculosis Complex DNA (PCR) Pending Vancomycin Level Trough 20.5 ug/mL (5.0-12.0) H Current Medications Medications (Trade) Dose Ordered Sig/Dafne Route PRN Reason Start Time Stop Time Status Last Admin Dose Admin Acetaminophen (Tylenol) 650 mg Q4H PRN ORAL Mild Pain/Temp > 100.5 09/09/18 21:30 10/09/18 21:29 09/15/18 15:52 Al Hydroxide/Mg Hydroxide (Mylanta) 30 ml Q6H PRN ORAL dyspepsia 09/09/18 21:30 10/09/18 21:29 09/15/18 04:35 Allopurinol (Allopurinol) 150 mg DAILY ORAL 09/10/18 09:00 10/10/18 08:59 09/16/18 08:14 Calcium Carbonate (OsCal D) 1 tab THREE TIMES A DAY ORAL 09/10/18 09:00 10/10/18 08:59 09/16/18 08:14 Cefepime HCl 1 gm/ Dextrose 55 ml @ 110 mls/hr DAILY IVPB 09/11/18 09:00 09/18/18 08:59 09/16/18 09:21 Hydroxyzine HCl (Atarax) 25 mg Q6H PRN ORAL Itching 09/10/18 02:45 10/10/18 02:44 Levothyroxine Sodium (Synthroid) 88 mcg DAILY@0630 ORAL 09/14/18 06:30 10/14/18 06:29 09/16/18 06:16 Magnesium Hydroxide (Mom) 30 ml DAILYPRN PRN ORAL Constipation 09/11/18 16:45 10/11/18 16:44 Patient Own Medication (Patient's Own Med) 1 ea BEDTIME BOTH EYES 09/13/18 21:00 10/13/18 20:59 09/15/18 20:49 Patient Own Medication (Patient's Own Med) 1 ea BID OPHTHALM 09/13/18 18:00 10/13/18 17:59 09/16/18 08:14 Patient Own Medication (Patient's Own Med) 1 ea Q8H OPHTHALM 09/13/18 16:00 10/13/18 15:59 09/16/18 08:14 Promethazine HCl/ Codeine (Phenergan with Codeine) 5 ml Q4H PRN ORAL For Cough 09/09/18 21:30 10/09/18 21:29 Rivaroxaban (Xarelto) 15 mg QPM ORAL 09/16/18 16:30 10/16/18 16:29 Vancomycin HCl (Vanco rx to dose) 1 ea DAILY PRN MISC Per rx protocol 09/09/18 21:30 10/09/18 21:29 Vancomycin HCl/ Dextrose 275 ml @ 137.5 mls/ hr Q24H IVPB 09/16/18 04:00 09/18/18 23:59 09/16/18 04:36 Umu Rosas MD Sep 16, 2018 10:41
--- NOTE | 2018-09-16 10:50 | NUR ---
NURSE NOTES: Chest x-ray taken
--- NOTE | 2018-09-16 10:57 | NUR ---
RADIOLOGY DEPT STRICT ISOLATION, CHEST X-RAY DONE.-P.DYE
--- NOTE | 2018-09-16 11:13 | General Progress Note ---
Assessment/Plan Problem List: (1) Anxiety disorder ICD Codes: F41.9 - Anxiety disorder, unspecified SNOMED: 926989304 Status: stable Assessment/Plan no meds provided supportive therapy educated the pt about her medical condition Subjective Neurologic/Psychiatric: Reports: anxiety Allergies: Coded Allergies: SCALLOPS (Verified Allergy, Unknown, 05/29/17) Subjective the pt was less anxious today. the pt believes that she could go home tomorrow less concern about her dx Objective Last 24 Hour Vital Signs Date Time Temp Pulse Resp B/P (MAP) Pulse Ox O2 Delivery O2 Flow Rate FiO2 09/16/18 09:00 Room Air 09/16/18 08:00 98.6 83 20 123/81 (95) 95 09/16/18 04:00 99.5 66 18 125/75 (92) 97 09/15/18 21:00 Room Air 09/15/18 20:00 98.3 66 18 120/71 (87) 98 09/15/18 16:00 99.4 82 18 118/82 (94) 98 09/15/18 12:00 98.1 66 18 108/66 (80) 98 Intake and Output 09/15/18 09/16/18 19:00 07:00 Intake Total 480 ml Balance 480 ml Intake Oral 480 ml # Voids 3 1 Laboratory Tests 09/15/18 15:23: M. tuberculosis Complex DNA (PCR) [Pending] 09/16/18 03:17: Vancomycin Level Trough 20.5H Height (Feet): 5 Height (Inches): 6.00 Weight (Pounds): 157 General Appearance: WD/WN, alert, moderate distress, overweight Neurologic: oriented x 3, responsive, depressed affect Butch Johns MD Sep 16, 2018 11:13
[2018-09-16 12:00] VITALS: BP 123/78
--- NOTE | 2018-09-16 12:37 | Diagnostic Imaging Report ---
Indication: Shortness of breath Technique: One view of the chest Comparison: 12/06/2016 Findings: Left chest pacemaker is again demonstrated. There has been interim placement of a new right atrial and a new right ventricular lead. There is some atelectasis in the right infrahilar region. Lungs pleural spaces are otherwise clear. The heart size is normal. Surgical clips are seen in the left axilla, not evident previously. Impression: Right infrahilar atelectasis. No acute process otherwise. Other findings as noted
--- NOTE | 2018-09-16 14:26 | NUR ---
RD ASSESSMENT & RECOMMENDATIONS SEE CARE ACTIVITY FOR COMPLETE ASSESSMENT DAILY ESTIMATED NEEDS: Needs based on Pulmonary, h/o ca 63kg adj 25-30 kcals/kg 4075-8474 total kcals 1-1.5 g protein/kg 63-95 g total protein 25-30 mL/kg 0594-0441 total fluid mLs NUTRITION DIAGNOSIS: Altered nutrition related lab values r/t clinical status, h/o breast ca, AEB low Hgb (9.6), CURRENT DIET:OLIVER PO DIET RECOMMENDATIONS: Vegetarian diet as requested ADDITIONAL RECOMMENDATIONS: 1) Obtain a calibrated bed scale wt --> Pt reports possible wt loss 2) PO intake is variable, w/ refusal for last 2 meals 3) Added snacks as tolerated
--- NOTE | 2018-09-16 15:27 | Pulmonology Progress Note ---
Assessment/Plan Assessment/Plan 1. Right lower lobe pneumonia with possible cavitation. 2. Recent left breast lumpectomy for cancer. 3. Lung nodule decreasing in size. 4. History of Graves disease with blindness. 5. Status post thyroidectomy. 6. Hypertensive heart disease with pacemaker. 7. Diastolic heart failure. 8. Paroxysmal atrial fibrillation. cont abx await AFB and TB spot test continue isolation for now CXR better disc w RN Subjective Respiratory: Reports: dry cough Allergies: Coded Allergies: SCALLOPS (Verified Allergy, Unknown, 05/29/17) Objective Last 24 Hour Vital Signs Date Time Temp Pulse Resp B/P (MAP) Pulse Ox O2 Delivery O2 Flow Rate FiO2 09/16/18 12:00 98.5 77 20 123/78 (93) 100 09/16/18 09:00 Room Air 09/16/18 08:00 98.6 83 20 123/81 (95) 95 09/16/18 04:00 99.5 66 18 125/75 (92) 97 09/15/18 21:00 Room Air 09/15/18 20:00 98.3 66 18 120/71 (87) 98 09/15/18 16:00 99.4 82 18 118/82 (94) 98 Intake and Output 09/15/18 09/16/18 19:00 07:00 Intake Total 480 ml Balance 480 ml Intake Oral 480 ml # Voids 3 1 General Appearance: no acute distress Respiratory/Chest: lungs clear Cardiovascular: normal rate Laboratory Tests 09/16/18 03:17: Vancomycin Level Trough 20.5H Current Medications Medications (Trade) Dose Ordered Sig/Dafne Route PRN Reason Start Time Stop Time Status Last Admin Dose Admin Acetaminophen (Tylenol) 650 mg Q4H PRN ORAL Mild Pain/Temp > 100.5 09/09/18 21:30 10/09/18 21:29 09/15/18 15:52 Al Hydroxide/Mg Hydroxide (Mylanta) 30 ml Q6H PRN ORAL dyspepsia 09/09/18 21:30 10/09/18 21:29 09/15/18 04:35 Allopurinol (Allopurinol) 150 mg DAILY ORAL 09/10/18 09:00 10/10/18 08:59 09/16/18 08:14 Calcium Carbonate (OsCal D) 1 tab THREE TIMES A DAY ORAL 09/10/18 09:00 10/10/18 08:59 09/16/18 12:25 Cefepime HCl 1 gm/ Dextrose 55 ml @ 110 mls/hr DAILY IVPB 09/11/18 09:00 09/18/18 08:59 09/16/18 09:21 Hydroxyzine HCl (Atarax) 25 mg Q6H PRN ORAL Itching 09/10/18 02:45 10/10/18 02:44 Levothyroxine Sodium (Synthroid) 88 mcg DAILY@0630 ORAL 09/14/18 06:30 10/14/18 06:29 09/16/18 06:16 Magnesium Hydroxide (Mom) 30 ml DAILYPRN PRN ORAL Constipation 09/11/18 16:45 10/11/18 16:44 Patient Own Medication (Patient's Own Med) 1 ea BEDTIME BOTH EYES 09/13/18 21:00 10/13/18 20:59 09/15/18 20:49 Patient Own Medication (Patient's Own Med) 1 ea BID OPHTHALM 09/13/18 18:00 10/13/18 17:59 09/16/18 08:14 Patient Own Medication (Patient's Own Med) 1 ea Q8H OPHTHALM 09/13/18 16:00 10/13/18 15:59 09/16/18 08:14 Promethazine HCl/ Codeine (Phenergan with Codeine) 5 ml Q4H PRN ORAL For Cough 09/09/18 21:30 10/09/18 21:29 Rivaroxaban (Xarelto) 15 mg QPM ORAL 09/16/18 16:30 10/16/18 16:29 Vancomycin HCl (Vanco rx to dose) 1 ea DAILY PRN MISC Per rx protocol 09/09/18 21:30 10/09/18 21:29 Vancomycin HCl/ Dextrose 275 ml @ 137.5 mls/ hr Q24H IVPB 09/16/18 04:00 09/18/18 23:59 09/16/18 04:36 Dashawn Mary MD Sep 16, 2018 15:27
[2018-09-16 16:00] VITALS: BP 123/79
[2018-09-16] MEDS: Xarelto 15mg tab ORAL SCH (16:49)
--- NOTE | 2018-09-16 19:23 | NUR ---
HAND-OFF: Report given to Blanca DIAZ. Patient in stable condition.
--- NOTE | 2018-09-16 19:30 | NUR ---
NURSE NOTES: Received report & pt from Dami Carreno RN. Pt lying in bed, a&ox4, in room airNo s/s of acute distress & no c/o pain. On airborne precaution. Skin intact. IV site intact & S/L'd. Bed in lowest position, call light within reach. Will continue to monitor.
[2018-09-16 20:00] VITALS: BP 125/78
[2018-09-16] MEDS: LUMIGAN 0.01% BOTH EYES SCH (20:23)
[2018-09-17] VITALS: BP 110/67
[2018-09-17 04:00] VITALS: BP 110/56
[2018-09-17] MEDS: Vancomycin 1.5gm Premix IVPB SCH (04:19)
--- NOTE | 2018-09-17 07:23 | NUR ---
HAND-OFF: Report given to RN. Elvi Pt in stable condition.
--- NOTE | 2018-09-17 07:30 | NUR ---
NURSE NOTES: Pt lying in bed, a&ox4, in room air. No s/s of acute distress & no c/o pain. On airborne precaution. Skin intact. IV site intact & S/L'd. Bed in lowest position, call light within reach. Will continue to monitor.
[2018-09-17 08:00] VITALS: BP 133/78
--- NOTE | 2018-09-17 08:40 | Pulmonology Progress Note ---
Assessment/Plan Assessment/Plan 1. Right lower lobe pneumonia with possible cavitation. 2. Recent left breast lumpectomy for cancer. 3. Lung nodule decreasing in size. 4. History of Graves disease with blindness. 5. Status post thyroidectomy. 6. Hypertensive heart disease with pacemaker. 7. Diastolic heart failure. 8. Paroxysmal atrial fibrillation. cont abx NEG AFB x 3 and NEG TB spot test discontinue isolation CXR reviewed disc w JOE OK for dc from my view Subjective Respiratory: Reports: dry cough - less Allergies: Coded Allergies: SCALLOPS (Verified Allergy, Unknown, 05/29/17) Objective Last 24 Hour Vital Signs Date Time Temp Pulse Resp B/P (MAP) Pulse Ox O2 Delivery O2 Flow Rate FiO2 09/17/18 04:00 98.9 74 18 110/56 (74) 99 09/17/18 00:00 98.8 69 18 110/67 (81) 100 09/16/18 21:00 Room Air 09/16/18 20:00 98.7 87 18 125/78 (94) 98 09/16/18 16:30 99.0 09/16/18 16:00 100.0 84 20 123/79 (94) 99 09/16/18 12:00 98.5 77 20 123/78 (93) 100 09/16/18 09:00 Room Air Intake and Output 09/16/18 09/17/18 19:00 07:00 Intake Total 360 ml Balance 360 ml Intake Oral 360 ml General Appearance: no acute distress Respiratory/Chest: lungs clear Microbiology Date/Time Source Procedure Growth Status 09/15/18 12:35 Sputum AFB Specimen Processing Tissue - Final Resulted 09/15/18 12:35 Sputum Acid Fast Bacilli Smear - Final Resulted 09/15/18 12:35 Sputum Acid Fast Bacilli Culture Pending Resulted 09/14/18 16:10 Sputum AFB Specimen Processing Tissue - Final Resulted 09/14/18 16:10 Sputum Acid Fast Bacilli Smear - Final Resulted 09/14/18 16:10 Sputum Acid Fast Bacilli Culture Pending Resulted Current Medications Medications (Trade) Dose Ordered Sig/Dafne Route PRN Reason Start Time Stop Time Status Last Admin Dose Admin Acetaminophen (Tylenol) 650 mg Q4H PRN ORAL Mild Pain/Temp > 100.5 09/09/18 21:30 10/09/18 21:29 09/16/18 17:15 Al Hydroxide/Mg Hydroxide (Mylanta) 30 ml Q6H PRN ORAL dyspepsia 09/09/18 21:30 10/09/18 21:29 09/15/18 04:35 Allopurinol (Allopurinol) 150 mg DAILY ORAL 09/10/18 09:00 10/10/18 08:59 09/16/18 08:14 Calcium Carbonate (OsCal D) 1 tab THREE TIMES A DAY ORAL 09/10/18 09:00 10/10/18 08:59 09/16/18 17:15 Cefepime HCl 1 gm/ Dextrose 55 ml @ 110 mls/hr DAILY IVPB 09/11/18 09:00 09/18/18 08:59 09/16/18 09:21 Hydroxyzine HCl (Atarax) 25 mg Q6H PRN ORAL Itching 09/10/18 02:45 10/10/18 02:44 Levothyroxine Sodium (Synthroid) 88 mcg DAILY@0630 ORAL 09/14/18 06:30 10/14/18 06:29 09/17/18 06:29 Magnesium Hydroxide (Mom) 30 ml DAILYPRN PRN ORAL Constipation 09/11/18 16:45 10/11/18 16:44 Patient Own Medication (Patient's Own Med) 1 ea BEDTIME BOTH EYES 09/13/18 21:00 10/13/18 20:59 09/16/18 20:23 Patient Own Medication (Patient's Own Med) 1 ea BID OPHTHALM 09/13/18 18:00 10/13/18 17:59 09/16/18 17:16 Patient Own Medication (Patient's Own Med) 1 ea Q8H OPHTHALM 09/13/18 16:00 10/13/18 15:59 09/16/18 23:47 Promethazine HCl/ Codeine (Phenergan with Codeine) 5 ml Q4H PRN ORAL For Cough 09/09/18 21:30 10/09/18 21:29 Rivaroxaban (Xarelto) 15 mg QPM ORAL 09/16/18 16:30 10/16/18 16:29 09/16/18 16:49 Vancomycin HCl (Vanco rx to dose) 1 ea DAILY PRN MISC Per rx protocol 09/09/18 21:30 10/09/18 21:29 Vancomycin HCl/ Dextrose 275 ml @ 137.5 mls/ hr Q24H IVPB 09/16/18 04:00 09/18/18 23:59 09/17/18 04:19 Dashawn Mary MD Sep 17, 2018 08:40
--- NOTE | 2018-09-17 09:15 | NUR ---
NURSE NOTES: Dr Mary d/alana'd airborne isolation.
--- NOTE | 2018-09-17 09:20 | NUR ---
HAND-OFF: Report given to Bre.
--- NOTE | 2018-09-17 10:02 | NUR ---
NURSE NOTES: Received report from Zee at 0920 after assignment change from 4E. Pt in bed, awake, talkative, asking about discharge, will review and discuss, bed in lowest position, call light within reach.
--- NOTE | 2018-09-17 10:38 | Infectious Diseases Prog Note ---
Assessment/Plan Assessment/Plan antibiotics : vancomycin iv, cefepime A 1. cavitary pneumonia 2. r/o TB, sputum AFB negative x 3, TB spot negative 3. breast cancer s/p left lumpectomy 4. hypothyroidism P 1. d/c iv vancomycin, cefepime 2. observe off antibiotics Subjective Constitutional: Denies: fever, chills Respiratory: Reports: shortness of breath - decreased, dry cough - decreased Gastrointestinal/Abdominal: Denies: nausea, vomiting, diarrhea Musculoskeletal: Denies: pain Allergies: Coded Allergies: SCALLOPS (Verified Allergy, Unknown, 05/29/17) Objective Vital Signs Last 24 Hour Vital Signs Date Time Temp Pulse Resp B/P (MAP) Pulse Ox O2 Delivery O2 Flow Rate FiO2 09/17/18 04:00 98.9 74 18 110/56 (74) 99 09/17/18 00:00 98.8 69 18 110/67 (81) 100 09/16/18 21:00 Room Air 09/16/18 20:00 98.7 87 18 125/78 (94) 98 09/16/18 16:30 99.0 09/16/18 16:00 100.0 84 20 123/79 (94) 99 09/16/18 12:00 98.5 77 20 123/78 (93) 100 Height (Feet): 5 Height (Inches): 6.00 Weight (Pounds): 157 Respiratory/Chest: lungs clear Cardiovascular: normal rate, regular rhythm, no gallop/murmur Abdomen: soft, non tender Extremities: no edema Microbiology Date/Time Source Procedure Growth Status 09/15/18 12:35 Sputum AFB Specimen Processing Tissue - Final Resulted 09/15/18 12:35 Sputum Acid Fast Bacilli Smear - Final Resulted 09/15/18 12:35 Sputum Acid Fast Bacilli Culture Pending Resulted 09/14/18 16:10 Sputum AFB Specimen Processing Tissue - Final Resulted 09/14/18 16:10 Sputum Acid Fast Bacilli Smear - Final Resulted 09/14/18 16:10 Sputum Acid Fast Bacilli Culture Pending Resulted Current Medications Medications (Trade) Dose Ordered Sig/Dafne Route PRN Reason Start Time Stop Time Status Last Admin Dose Admin Acetaminophen (Tylenol) 650 mg Q4H PRN ORAL Mild Pain/Temp > 100.5 09/09/18 21:30 10/09/18 21:29 09/16/18 17:15 Al Hydroxide/Mg Hydroxide (Mylanta) 30 ml Q6H PRN ORAL dyspepsia 09/09/18 21:30 10/09/18 21:29 09/15/18 04:35 Allopurinol (Allopurinol) 150 mg DAILY ORAL 09/10/18 09:00 10/10/18 08:59 09/16/18 08:14 Calcium Carbonate (OsCal D) 1 tab THREE TIMES A DAY ORAL 09/10/18 09:00 10/10/18 08:59 09/16/18 17:15 Cefepime HCl 1 gm/ Dextrose 55 ml @ 110 mls/hr DAILY IVPB 09/11/18 09:00 09/18/18 08:59 09/16/18 09:21 Hydroxyzine HCl (Atarax) 25 mg Q6H PRN ORAL Itching 09/10/18 02:45 10/10/18 02:44 Levothyroxine Sodium (Synthroid) 88 mcg DAILY@0630 ORAL 09/14/18 06:30 10/14/18 06:29 09/17/18 06:29 Magnesium Hydroxide (Mom) 30 ml DAILYPRN PRN ORAL Constipation 09/11/18 16:45 10/11/18 16:44 Patient Own Medication (Patient's Own Med) 1 ea BEDTIME BOTH EYES 09/13/18 21:00 10/13/18 20:59 09/16/18 20:23 Patient Own Medication (Patient's Own Med) 1 ea BID OPHTHALM 09/13/18 18:00 10/13/18 17:59 09/16/18 17:16 Patient Own Medication (Patient's Own Med) 1 ea Q8H OPHTHALM 09/13/18 16:00 10/13/18 15:59 09/16/18 23:47 Promethazine HCl/ Codeine (Phenergan with Codeine) 5 ml Q4H PRN ORAL For Cough 09/09/18 21:30 10/09/18 21:29 Rivaroxaban (Xarelto) 15 mg QPM ORAL 09/16/18 16:30 10/16/18 16:29 09/16/18 16:49 Vancomycin HCl (Vanco rx to dose) 1 ea DAILY PRN MISC Per rx protocol 09/09/18 21:30 10/09/18 21:29 Vancomycin HCl/ Dextrose 275 ml @ 137.5 mls/ hr Q24H IVPB 09/16/18 04:00 09/18/18 23:59 09/17/18 04:19 Umu Rosas MD Sep 17, 2018 10:38
[2018-09-17] MEDS: Calcium Carbonate 500mg w/Vit D 200iu tab ORAL SCH ×3 (10:50→17:38)
[2018-09-17] MEDS: TIMOLOL OPHTHALM SCH ×2 (10:51→17:38)
[2018-09-17] MEDS: DORZOLAMIDE OPHTHALM SCH ×2 (10:51→17:38)
[2018-09-17] MEDS: ALPHAGAN OPHTHALM SCH ×2 (10:51→16:23)
--- NOTE | 2018-09-17 11:05 | General Progress Note ---
Assessment/Plan Problem List: (1) Constipation ICD Codes: K59.00 - Constipation, unspecified SNOMED: 62174514 (2) Bronchitis ICD Codes: J40 - Bronchitis, not specified as acute or chronic SNOMED: 27598340 (3) Pneumonia ICD Codes: J18.9 - Pneumonia, unspecified organism SNOMED: 377231485 Status: stable, progressing Assessment/Plan cont current rx abx per id bowel regime monitor cxr resp care cough rx dc planning Subjective ROS Limited/Unobtainable: No Constitutional: Reports: malaise, weakness HEENT: Reports: no symptoms Cardiovascular: Reports: no symptoms Respiratory: Reports: cough Gastrointestinal/Abdominal: Reports: no symptoms Genitourinary: Reports: no symptoms Neurologic/Psychiatric: Reports: no symptoms Endocrine: Reports: no symptoms Hematologic/Lymphatic: Reports: no symptoms Allergies: Coded Allergies: SCALLOPS (Verified Allergy, Unknown, 05/29/17) All Systems: reviewed and negative except above Subjective no events. no new complaints. remains in isolation. decreased sob/cough. no night sweats. no fevers. no hemoptysis AFB SMEARS NEG X 3 Objective Last 24 Hour Vital Signs Date Time Temp Pulse Resp B/P (MAP) Pulse Ox O2 Delivery O2 Flow Rate FiO2 09/17/18 08:00 98.1 79 16 133/78 (96) 98 09/17/18 04:00 98.9 74 18 110/56 (74) 99 09/17/18 00:00 98.8 69 18 110/67 (81) 100 09/16/18 21:00 Room Air 09/16/18 20:00 98.7 87 18 125/78 (94) 98 09/16/18 16:30 99.0 09/16/18 16:00 100.0 84 20 123/79 (94) 99 09/16/18 12:00 98.5 77 20 123/78 (93) 100 Intake and Output 09/16/18 09/17/18 19:00 07:00 Intake Total 360 ml Balance 360 ml Intake Oral 360 ml Height (Feet): 5 Height (Inches): 6.00 Weight (Pounds): 157 Objective General Appearance: WD/WN, alert Neck: supple Cardiovascular: normal rate Respiratory/Chest: chest wall non-tender, lungs clear, normal breath sounds Abdomen: normal bowel sounds, non tender, soft, no organomegaly Edema: no edema noted Arm (L), no edema noted Arm (R), no edema noted Leg (L), no edema noted Leg (R), no edema noted Pedal (L), no edema noted Pedal (R), no edema noted Generalized Neurologic: no motor/sensory deficits Garry Rangel MD Sep 17, 2018 11:05
[2018-09-17 12:00] VITALS: BP 123/75
--- NOTE | 2018-09-17 14:43 | NUR ---
NURSE NOTES: Pt cleared by Infection Control Nurse
--- NOTE | 2018-09-17 14:46 | NUR ---
NURSE NOTES: Notified Dr. Rangel regarding clearance from Infection Control and clearance from [facility] and Soffer. Dr. Rangel ordered to [facility] herrera
--- NOTE | 2018-09-17 15:11 | General Progress Note ---
Assessment/Plan Problem List: (1) Anxiety disorder ICD Codes: F41.9 - Anxiety disorder, unspecified SNOMED: 837018625 Assessment/Plan no meds provided supportive therapy educated the pt about her medical condition Subjective Neurologic/Psychiatric: Reports: anxiety Allergies: Coded Allergies: SCALLOPS (Verified Allergy, Unknown, 05/29/17) Subjective the pt was doing well the pt is focused on discharge Objective Last 24 Hour Vital Signs Date Time Temp Pulse Resp B/P (MAP) Pulse Ox O2 Delivery O2 Flow Rate FiO2 09/17/18 12:00 98.1 81 16 123/75 (91) 99 09/17/18 11:20 98.9 09/17/18 09:00 Room Air 09/17/18 08:00 98.1 79 16 133/78 (96) 98 09/17/18 04:00 98.9 74 18 110/56 (74) 99 09/17/18 00:00 98.8 69 18 110/67 (81) 100 09/16/18 21:00 Room Air 09/16/18 20:00 98.7 87 18 125/78 (94) 98 09/16/18 16:30 99.0 09/16/18 16:00 100.0 84 20 123/79 (94) 99 Intake and Output 09/16/18 09/17/18 19:00 07:00 Intake Total 360 ml Balance 360 ml Intake Oral 360 ml Height (Feet): 5 Height (Inches): 6.00 Weight (Pounds): 157 General Appearance: WD/WN, no apparent distress, alert Neurologic: oriented x 3, responsive, depressed affect Butch Johns MD Sep 17, 2018 15:11
[2018-09-17 16:00] VITALS: BP 133/87
[2018-09-17] MEDS: Xarelto 15mg tab ORAL SCH (16:23)
--- NOTE | 2018-09-17 16:43 | NUR ---
NURSE NOTES: Reviewed all discharge papers with pt. Provided oral and written pt educations on PNA and atelectasis, pt verbalizes understanding. Order IS for pt to use to treat atelectasis. Pt will call daughter for ride home.
[2018-09-17] MEDS ORDERED: Tubing IV Secondary IV ONE (18:29)
[2018-09-17] MEDS ORDERED: D5W 275ml ONE (18:29)
--- NOTE | 2018-09-17 18:30 | NUR ---
NURSE NOTES: Pt discharged home with all belongings, IV removed, ID band removed. With all discharge paperwork and IS. Pt stable for discharge. taken out by wheelchair accompanied by family member
--- NOTE | 2018-09-17 23:46 | Progress Note ---
DATE: 09/17/2018 HEMATOLOGY/ONCOLOGY PROGRESS NOTE: SUBJECTIVE: The patient has been feeling significantly better. I had an extensive discussion with Dr. Lee. I also discussed with the patient at great length, requirement of radiation therapy as well as hormonal therapy has been discussed with the patient. The patient has been somewhat hypokalemic. It appears potassium is 3.3. The patient is very aware of the need for radiation or hormonal therapy. Metastatic workup needs to be comprehensive on outpatient basis. The patient has sodium of 138. As of 09/14/2018 a creatinine of 1.1. Also as on 09/14/2018, the patient had a white count 6.1, hemoglobin 9.6, platelet count 259,000. The patient needs to have anemia workup. The patient is fully aware of this issue that he needs to follow up. The patient also has some eosinophilia and needs to be worked up on outpatient basis. The patient's chest CT once again as of 09/11/2018 was reviewed and discussed with the patient, which demonstrated evidence of 3 x 2.9 x 2.5 cm subcutaneous fluid collection, treated with lumpectomy, 3 x 1.8 cm region of consolidation in the dependent right lower lobe . Mediastinal paratracheal and precarinal lymph nodes also noted. PAST MEDICAL HISTORY: Has been noted. SOCIAL HISTORY: Has been noted. ALLERGIES: Has been noted. MEDICATIONS: Has been noted. REVIEW OF SYSTEMS: As noted above. The patient is feeling significantly better. No cough. The patient is on isolation at this point in time. PHYSICAL EXAMINATION: VITAL SIGNS: Temperature 98.9, pulse 74, breathing 20, blood pressure 110/56. GENERAL: The patient is legally blind. CHEST: Some rhonchi at the bases. CARDIAC: Regular. Normal S1 and S2. ABDOMEN: Soft, nontender. EXTREMITIES: There is no cyanosis, clubbing, or edema. NEUROLOGIC: Nonfocal. SKIN: Postsurgical changes in the left breast are noted. ASSESSMENT AND PLAN: 1. Breast cancer and DCIS. Plan is for the patient to undergo radiation therapy. The patient's tumor count also be sent for Oncotype DX to evaluate the need for possible cancer; however, I doubt there is any need for small area of malignancy. The patient's most of the tumor was noted to be desaturated and most probably infiltrate. The patient will have a repeat CT scan of the chest. 2. Decreased ambulation. 3. Legally blind. 4. Anemia. Full anemia workup as outpatient basis. 5. Eosinophilia. The patient is to have full eosinophilia evaluation on an outpatient basis as well. Nely Harding M.D. DR: ALIREZA JOB#: [id number] CC:
--- NOTE | 2018-09-20 08:52 | Discharge Summary ---
Discharge Summary Discharge Summary _ DATE OF ADMISSION: 09/09/2018 DATE OF DISCHARGE: 09/17/2018 DISCHARGED BY: Dr. Lee REASON FOR ADMISSION: 73 years old female with past medical history of hypertension, permanent pacemaker, Graves' disease, status post thyroidectomy and iodine -131 therapy, exophthalmos, glaucoma with blindness, vitamin D deficiency, hyperuricemia, paroxysmal atrial fibrillation, breast cancer, status post recent left lumpectomy, chronic constipation, developed cough after surgical intervention for left lumpectomy. Patient was treated as outpatient but she failed outpatient treatment and worsened significantly over the past week. Patient reported hacking cough and shortness of breath. Patient was seen in the office and was referred for a chest x-ray , which revealed new right lower lobe infiltrate. Patient had abnormal CT chest scan prior to left lumpectomy , which revealed right lung nodule. Biopsy was planned , however at that time noted that nodule had decreased in size and no biopsy was performed. It was felt that it was likely inflammatory. Laboratory volume values revealed potassium 3.3. Magnesium 1.7. No leukocytosis ,hemoglobin 9.9. Lactic acid 1.4. BUN 16, creatinine 1.2. Albumin 3.2. TSH 1.1. Pro BNP 211. Patient was admitted for further management. CONSULTANTS: Internal medicine Dr. Rangel pulmonary Dr. Mary ID specialist Dr. Rosas assistant/oncologist Dr. Harding psychiatrist [facility] COURSE: Patient admitted to medical surgical floor and started on empiric antibiotic. Supplemental oxygen and pulmonary toilet provided as needed No need for diuretic therapy. Volumes were closely monitored. Cardioembolic prophylaxis with Xarelto was continued. CT of the chest demonstrated 3.0 x 1.8 cm region of consolidation in the dependent right lower lobe with possible cavitation. Also noted 3.0 x 2.9 x 2.5 cm subcutaneous fluid collection versus cystic mass in the left anterior breast. Sputum culture revealed Genia. Repeated sputum culture was negative. Sputum for AFB smear x3 was negative. TB test/T spot was negative. PPD test was negative. Per infectious disease , patient had cavitary pneumonia Patient undergone course of IV antibiotic with vancomycin and cefepime. No leukocytosis,Intermittent fevers resolved. Infectious disease specialist recommended to observe patient off antibiotics. Funeral Home Director closely followed. Supplemental oxygen provided as needed to keep pulse oximetry above 92%. Pulmonary toilet provided as needed. Antitussive provided as needed. Airborne isolation was discontinued . Funeral Home Director cleared for discharge. Surgical Assistant Certified/oncologist closely followed. Patient was planned to undergo radiation therapy. Tumor count work was sent for Oncotype diagnostic. However per oncologist , most of the tumor was noted to be desaturated , and this was most probably infiltrate. Surgical Assistant Certified recommended follow-up with repeat CT scan of the chest. Patient noted to have eosinophilia and anemia. Full eosinophilia and anemia evaluation will be done on outpatient basis. Hemoglobin and hematocrit were closely monitored with his goal to keep hemoglobin above 7., remained on the baseline. Prior to discharge hemoglobin 9.6 hematocrit 29.7. Home medication resumed, including levothyroxine ,allopurinol and eyedrops. Bowel regimen instituted. Supportive care provided. Renal parameters and electrolytes were closely monitored and electrolytes corrected as needed. Nephrotoxins were avoided. Prior to discharge all electrolytes we re stable. Renal function stable. TSH within normal limits. Psychiatrist seen and evaluated patient and diagnosed patient with anxiety disorder. Supportive therapy provided. Patient was educated about medical condition. No medications were necessary at this time. Patient stabilized and was ready for discharge home outpatient follow-up with a primary care provider and oncologist. FINAL DIAGNOSES: Community-acquired right lower lobe pneumonia Cavitary pneumonia Breast cancer with recent left lumpectomy Lung nodule, decreased in size Graves' disease with exophthalmos and prior thyroidectomy, on replacement therapy Hypertensive heart disease Chronic diastolic congestive heart failure Permanent pacemaker Paroxysmal atrial fibrillation Mild protein calorie malnutrition Anemia Eosinophilia Anxiety disorder DISCHARGE MEDICATIONS: See Medication Reconciliation list. DISCHARGE INSTRUCTIONS: Patient was discharged home . Follow up with primary care provider in one week. Follow-up with oncologist for further management. I have been assigned to dictate discharge summary for this account. I was not involved in the patient's management. Darline Cotto NP Sep 20, 2018 08:52
--- NOTE | 2018-09-21 02:15 | Progress Note ---
DATE: 09/16/2018 CARDIOLOGY PROGRESS NOTE Late entry for 09/16/2018. SUBJECTIVE: It is noted that the patient has less cough and congestion. No chest pain. OBJECTIVE: VITAL SIGNS: Blood pressure 123/79, pulse 84, respiratory rate 20, T max 100. LUNGS: Few rhonchi on right greater than left. HEART: Regular rhythm and rate. Normal S1, S2. ABDOMEN: Soft. EXTREMITIES: Trace edema. IMPRESSION: 1. Breast cancer status post left lumpectomy. 2. Pacemaker. 3. Graves disease. 4. Fluid collection postoperatively. PLAN: 1. Outpatient radiation therapy. 2. Respiratory hygiene. 3. Antimicrobials. 4. Outpatient Hematology/Oncology evaluation for chemotherapy following radiation therapy. 5. Continue current cardiovascular regimen. 6. Cautious resumption of anticoagulation and observe for worsening hematoma of breast in the surgical sites. Jose Raul Lee M.D. DR: STORMY JOB#: [id number] CC:
== END 2018-09-17 18:30 | disposition home or self-care (01) | DRG 194 ==
LOC: 3E 17:43
DX: J18.8 Other pneumonia, unspecified organism (principal); I50.32 Chronic diastolic (congestive) heart failure; E44.1 Mild protein-calorie malnutrition; C50.912 Malignant neoplasm of unspecified site of left female breast; Z95.0 Presence of cardiac pacemaker; I11.0 Hypertensive heart disease with heart failure; E05.00 Thyrotoxicosis with diffuse goiter without thyrotoxic crisis or storm; I48.0 Paroxysmal atrial fibrillation; D72.1 Eosinophilia; F41.9 Anxiety disorder, unspecified; D64.9 Anemia, unspecified; Z87.891 Personal history of nicotine dependence; H40.9 Unspecified glaucoma; Z88.8 Allergy status to other drugs, medicaments and biological substances; K59.00 Constipation, unspecified; J40 Bronchitis, not specified as acute or chronic; E89.0 Postprocedural hypothyroidism; H54.8 Legal blindness, as defined in USA
CPT/HCPCS: 36415; 71045; 71250; 80048; 80053; 80202; 83605; 83735; 83880; 84443; 85025; 86580; 87070; 87116; 87205; 87556; 94640; 94664; J7620; J8499